=== PATIENT | female | born 1985 ===

== ENCOUNTER 2017-11-04 01:43 | Inpatient (IN) | payer MEDICAID ==
[2017-11-04] MEDS ORDERED: Sodium Chloride 0.9% 1,000 ML IV ONE ×5 (02:27→10:32)
--- NOTE | 2017-11-04 02:27 | C.PDOC ---
History Of Present Illness The patient is brought to the ED by ambulance for evaluation of mid-epigastric abdominal pain and episode of coffee ground emesis which occurred prior to arrival. Patient admits to using cocaine yesterday. She denies fever, chills, or recent alcohol intake. Time Seen by Provider: 11/04/17 02:27 Chief Complaint (Nursing): Abdominal Pain History Per: Patient, EMS History/Exam Limitations: no limitations Onset/Duration Of Symptoms: Hrs Current Symptoms Are (Timing): Still Present Severity: Severe Pain Scale Rating Of: 7 Location Of Pain/Discomfort: Epigastric (mid) Radiation Of Pain To:: None Quality Of Discomfort: "Pain" Associated Symptoms: Vomiting. denies: Fever, Chills Exacerbating Factors: None Alleviating Factors: None Recent travel outside of the [place]: No Additional History Per: Patient, EMS Abnormal Vaginal Bleeding: No Past Medical History Reviewed: Historical Data, Nursing Documentation, Vital Signs Vital Signs: Last Vital Signs Temp 99.1 F 11/04/17 05:04 Pulse 109 H 11/04/17 05:40 Resp 16 11/04/17 05:40 BP 121/85 11/04/17 05:40 Pulse Ox 98 11/04/17 06:47 - Medical History PMH: Anxiety Surgical History: No Surg Hx Family History: States: Unknown Family Hx - Social History Hx Alcohol Use: No Hx Substance Use: Yes Review Of Systems Constitutional: Negative for: Fever, Chills ENT: Negative for: Throat Pain Cardiovascular: Negative for: Chest Pain, Palpitations Respiratory: Negative for: Cough, Shortness of Breath Gastrointestinal: Positive for: Vomiting (coffee-ground ), Abdominal Pain (mid- epigastric ) Genitourinary: Negative for: Dysuria, Hematuria Musculoskeletal: Negative for: Back Pain Skin: Negative for: Rash, Lesions, Jaundice, Bruising Neurological: Negative for: Weakness, Numbness Psych: Positive for: Anxiety Physical Exam - Physical Exam Appears: Non-toxic, No Acute Distress Skin: Warm, Dry Head: Normacephalic Eye(s): bilateral: Normal Inspection Oral Mucosa: Dry Teeth: No Normal Dentition (poor ) Neck: Trachea Midline, Supple Chest: Symmetrical, No Deformity, No Tenderness Cardiovascular: Rhythm Regular Respiratory: No Rales, No Rhonchi, No Wheezing Gastrointestinal/Abdominal: Soft, Tenderness (mid-epigastric ), No Guarding, No Rebound Rectal: Heme Negative, Maroon Stool Back: Normal Inspection Extremity: Normal ROM, Capillary Refill (less than 2 seconds ) Extremity: Bilateral: Atraumatic, No Pedal Edema, Normal Color And Temperature Neurological/Psych: Oriented x3 Gait: Steady ED Course And Treatment - Laboratory Results Result Diagrams: 11/04/17 02:29 11/04/17 02:29 O2 Sat by Pulse Oximetry: 98 (on RA) Pulse Ox Interpretation: Normal - Radiology CXR: Interpreted by Me, Viewed By Me CXR Interpretation: No: Infiltrates, Fracture, Pnemothorax - CT Scan/US CT A/P Other Rad Studies (CT/US): Read By Radiologist, Radiology Report Reviewed CT/US Interpretation: EXAM: CT Abdomen and Pelvis With Intravenous Contrast. EXAM DATE/TIME: 11/04/2017 4:24 AM. CLINICAL HISTORY: 31 years old, female; Pain; Abdominal pain; Generalized; Additional info: Hematemesis. TECHNIQUE: Axial computed tomography images of the abdomen and pelvis with intravenous contrast. All CT scans at this facility use at least one of these dose optimization techniques: automated. exposure control; mA and/or kV adjustment per patient size (includes targeted exams where dose is. matched to clinical indication); or iterative reconstruction. CONTRAST: 100 ml of Visipaque 320 administered intravenously. COMPARISON: No relevant prior studies available. FINDINGS: Limitations: Quantum mottle artifact in the upper abdomen from the patient's arms by her sides. partially obscures evaluation. Lower thorax: Minimal subsegmental atelectasis at the right lung base. Small hiatal hernia. ABDOMEN: Liver: Normal. No mass. Gallbladder and bile ducts: Normal. No calcified stones. No ductal dilation. Pancreas: Normal. No ductal dilation. Spleen: Normal. No splenomegaly. Adrenals: Normal. No mass. Kidneys and ureters: Normal. No hydronephrosis. Stomach and bowel: Diffuse gastric wall thickening worrisome for gastritis. Appendix: No evidence of appendicitis. PELVIS: Bladder: Distended urinary bladder. Reproductive: Unremarkable as visualized. ABDOMEN and PELVIS: Intraperitoneal space: Minimal free fluid within the pelvis. Bones/joints: No acute fracture. No dislocation. Soft tissues: Unremarkable. Vasculature: Normal. No abdominal aortic aneurysm. Lymph nodes: Normal. No enlarged lymph nodes. IMPRESSION: 1. Diffuse gastric wall thickening worrisome for gastritis. 2. Minimal free fluid within the pelvis. Progress Note: Bloodwork and urinalysis ordered and reviewed. Protonix IVP, Zofran IVP and IV Fluids given. I've placed an 18G left EJ without any difficulty. Pt tolerated the procedure well Critical Care Time - Critical Care Note Total Time (in mins): 30 Documented critical care: time excludes all time spent performing seperately billable procedures. Disposition Counseled Patient/Family Regarding: Studies Performed, Diagnosis - Disposition Disposition Time: 02:27 Condition: GUARDED Forms: Vibrynt (Maori) - Clinical Impression Clinical Impression: Abdominal pain, Upper GI bleed - PA / RUNNER OUT / Resident Statement MD/DO has reviewed & agrees with the documentation as recorded. - Scribe Statement The provider has reviewed the documentation as recorded by the Scribe (Phyllis Jones) Provider Attestation: All medical record entries made by the Scribe were at my direction and personally dictated by me. I have reviewed the chart and agree that the record accurately reflects my personal performance of the history, physical exam, medical decision making, and the department course for this patient. I have also personally directed, reviewed, and agree with the discharge instructions and disposition. Physician Patient Turnover Patient Signed Over To: Petrona Ward Handoff Comments: pending ct, repeat labs and disposition
[2017-11-04] MEDS ORDERED: Sodium Chloride 0.9% 1,000 ML ONE (02:35)
[2017-11-04 02:38] LABS: BASO # 0.1 K/uL (0.0-0.2); BASO % 0.5 % (0.0-2.0); EOS % 0.1 % (0.0-4.0); HEMOGLOBIN 14.8 g/dL (11.0-16.0); LYMPH # 2.2 K/uL (1.0-4.3); LYMPH % 14.3 % (20.0-40.0); MEAN CELL VOLUME 89.1 fL (81.0-99.0); MEAN CORPUSCULAR HEMOGLOBIN 29.4 pg (27.0-31.0); MEAN PLATELET VOLUME 10.1 fL (7.2-11.7); MONO # 0.8 K/uL (0.0-0.8); MONO % 4.9 % (0.0-10.0); NEUT # 12.4 K/uL (1.8-7.0); NEUT % 80.2 % (50.0-75.0); NRBC % 0.1 % (0.0-2.0); RBC 5.02 Mil/uL (3.80-5.20); RED CELL DISTRIBUTION WIDTH 14.5 % (11.5-14.5); WHITE BLOOD COUNT 15.5 K/uL (4.8-10.8)
[2017-11-04 02:49] LABS: INR 0.8
[2017-11-04 02:49] LABS: ALB/GLOB RATIO 1.2 (1.0-2.1); ALBUMIN 5.3 g/dL (3.5-5.0); ALT/SGPT 103 U/L (9-52); AST/SGOT 76 U/L (14-36); BLOOD UREA NITROGEN 21 mg/dL (7-17); CALCIUM 10.1 mg/dl (8.6-10.4); GFR AFRICAN-AMERICAN > 60; GFR NON-AFRICAN AMERICAN > 60; LIPASE 38 U/L (23-300)
[2017-11-04 03:18] LABS: SQUAMOUS EPITHIAL < 1 /hpf (0-5); URINE BACTERIA RARE (<OCC); URINE BILIRUBIN NEGATIVE (NEGATIVE); URINE BLOOD 1+ (NEGATIVE); URINE CLARITY Clear (Clear); URINE COLOR Straw (YELLOW); URINE GLUCOSE (UA) 3+ mg/dL (Normal); URINE LEUKOCYTE ESTERASE NEG Leu/uL (Negative); URINE PROTEIN NEGATIVE (NEGATIVE); URINE UROBILINOGEN NORMAL mg/dL (0.2-1.0)
[2017-11-04 03:19] LABS: HCG,QUALITATIVE URINE NEGATIVE (NEGATIVE)
[2017-11-04 03:21] LABS: VENOUS BLOOD GAS PCO2 43 mmHg (40-60); VENOUS BLOOD GAS PO2 37 mm/Hg (30-55); VENOUS BLOOD PH 7.35 (7.32-7.43)
[2017-11-04 03:50] LABS: BARBITURATES, UR NEGATIVE (NEGATIVE); BENZODIAZEPINES, UR NEGATIVE (NEGATIVE); OPIATES, UR NEGATIVE (NEGATIVE); PHENCYCLIDINE, UR NEGATIVE (NEGATIVE)
[2017-11-04] MEDS ORDERED: Piperacillin/Tazobact 3.375 gm 100 ML IVPB STA (04:24)
[2017-11-04] MEDS ORDERED: Piperacillin/Tazobact 3.375 gm 100 ML IVPB ONE (04:31)
[2017-11-04] MEDS ORDERED: Iodixanol 320 MG/ML 100 ML BOTTLE IV ONE (04:40)
[2017-11-04 08:32] LABS: VENOUS BLOOD GAS PCO2 46 mmHg (40-60); VENOUS BLOOD GAS PO2 52 mm/Hg (30-55)
[2017-11-04] MEDS ORDERED: Glucagon Recombinant 1 mg Inj IM PRN (08:42)
[2017-11-04] MEDS ORDERED: Dextrose 50% SYRINGE Inj (50 ml) IV PRN (08:42)
[2017-11-04 08:48] LABS: BASO % 0.3 % (0.0-2.0); EOS % 0.3 % (0.0-4.0); LYMPH # 3.1 K/uL (1.0-4.3); LYMPH % 24.6 % (20.0-40.0); MEAN CORPUSCULAR HEMOGLOBIN 29.3 pg (27.0-31.0); MEAN CORPUSCULAR HGB CONC 34.2 g/dL (33.0-37.0); MEAN PLATELET VOLUME 8.7 fL (7.2-11.7); MONO % 7.8 % (0.0-10.0); NEUT # 8.5 K/uL (1.8-7.0); RBC 3.63 Mil/uL (3.80-5.20); RED CELL DISTRIBUTION WIDTH 13.6 % (11.5-14.5); WHITE BLOOD COUNT 12.7 K/uL (4.8-10.8)
[2017-11-04] MEDS ORDERED: Dextrose 50% SYRINGE Inj (50 ml) IVP STA ×2 (08:50)
[2017-11-04 08:52] LABS: HEMOGLOBIN 10.6 g/dL (11.0-16.0); MEAN CELL VOLUME 85.7 fL (81.0-99.0)
[2017-11-04] MEDS ORDERED: Dextrose 25% Inj (10ml) ONE (08:57)
[2017-11-04] MEDS ORDERED: Pantoprazole 80 MG in Sodium Chloride 0.9% 100 ML IVPB SCH (09:45)
[2017-11-04] MEDS ORDERED: Pantoprazole 80 MG in Sodium Chloride 0.9% 100 ML IVP SCH (09:45)
--- NOTE | 2017-11-04 09:49 | RAD ---
Date of service: 11/04/2017 PROCEDURE: CHEST RADIOGRAPH, 1 VIEW HISTORY: vomiting COMPARISON: Frontal chest radiograph 11/04/2017. FINDINGS: LUNGS: No interval airspace disease appreciated. PLEURA: No pneumothorax or pleural fluid seen. CARDIOVASCULAR: Stable cardiomediastinal silhouette and pulmonary vascular pattern. No definite pulmonary vascular congestion. OSSEOUS STRUCTURES: No significant abnormalities. VISUALIZED UPPER ABDOMEN: Mild right hemidiaphragm elevation stable, etiology unclear. OTHER FINDINGS: None. IMPRESSION: Stable nonacute chest radiograph. Elevation right hemidiaphragm unchanged.
[2017-11-04] MEDS ORDERED: Sodium Chloride 0.9% 1,000 ML IV SCH ×2 (10:00→10:15)
[2017-11-04] MEDS ORDERED: Piperacillin/Tazobact 3.375 gm 100 ML IVPB SCH (10:30)
[2017-11-04] MEDS ORDERED: Sodium Chloride 0.9% 500 ML IV ONE (10:35)
[2017-11-04] MEDS ORDERED: Dextrose 50% SYRINGE Inj (50 ml) IV STA (11:07)
[2017-11-04] MEDS ORDERED: Dextrose 50% SYRINGE Inj (50 ml) ONE (11:15)
--- NOTE | 2017-11-04 11:19 | CP.PCM.HP ---
<Yael Yeh V - Last Filed: 11/04/17 22:58> Meds Allergies/Adverse Reactions: Allergies Allergy/AdvReac Type Severity Reaction Status Date / Time No Known Allergies Allergy Verified 11/04/17 01:57 Results - Vital Signs Recent Vital Signs: Last Vital Signs Temp 98.4 F 11/04/17 19:00 Pulse 98 H 11/04/17 19:00 Resp 20 11/04/17 19:00 BP 121/76 11/04/17 19:00 Pulse Ox 96 11/04/17 19:00 - Labs Result Diagrams: 11/04/17 14:06 11/04/17 12:18 Labs: Laboratory Results - last 24 hr 11/04/17 11/04/17 11/04/17 02:29 02:29 02:42 WBC 15.5 H RBC 5.02 Hgb 14.8 Hct 44.8 MCV 89.1 MCH 29.4 MCHC 33.0 RDW 14.5 Plt Count 338 MPV 10.1 Neut % (Auto) 80.2 H Lymph % (Auto) 14.3 L Callahan % (Auto) 4.9 Eos % (Auto) 0.1 Baso % (Auto) 0.5 Neut # (Auto) 12.4 H Lymph # (Auto) 2.2 Callahan # (Auto) 0.8 Eos # (Auto) 0.0 Baso # (Auto) 0.1 Differential Comment Retic Count PT 9.0 L INR 0.8 APTT 28 pO2 VBG pH VBG pCO2 VBG HCO3 VBG Total CO2 VBG O2 Sat (Calc) VBG Base Excess VBG Potassium Glucose Lactate Crit Value Called To Crit Value Called By Crit Value Read Back Blood Gas Notified Time Sodium 139 Potassium 4.5 Chloride 90 L Carbon Dioxide 16 L Anion Gap 38 H BUN 21 H Creatinine 0.8 Est GFR ( Amer) > 60 Est GFR (Non-Af Amer) > 60 Random Glucose 461 H* Lactic Acid Calcium 10.1 Iron TIBC % Saturation Ferritin Total Bilirubin 0.5 AST 76 H ALT 103 H Alkaline Phosphatase 156 H Ammonia Total Protein 9.5 H Albumin 5.3 H Globulin 4.3 H Albumin/Globulin Ratio 1.2 Lipase 38 Vitamin B12 Folate Venous Blood Potassium Urine Color Urine Clarity Urine pH Ur Specific [place] Urine Protein Urine Glucose (UA) Urine Ketones Urine Blood Urine Nitrate Urine Bilirubin Urine Urobilinogen Ur Leukocyte Esterase Urine WBC (Auto) Urine RBC (Auto) Ur Squamous Epith Cells Urine Bacteria Urine HCG, Qual Stool Occult Blood Urine Opiates Screen Urine Methadone Screen Ur Barbiturates Screen Ur Phencyclidine Scrn Ur Amphetamines Screen U Benzodiazepines Scrn U Oth Cocaine Metabols U Cannabinoids Screen Alcohol, Quantitative < 10 Blood Type Antibody Screen 11/04/17 11/04/17 11/04/17 02:56 03:08 03:08 WBC RBC Hgb Hct MCV MCH MCHC RDW Plt Count MPV Neut % (Auto) Lymph % (Auto) Callahan % (Auto) Eos % (Auto) Baso % (Auto) Neut # (Auto) Lymph # (Auto) Callahan # (Auto) Eos # (Auto) Baso # (Auto) Differential Comment Retic Count PT INR APTT pO2 VBG pH VBG pCO2 VBG HCO3 VBG Total CO2 VBG O2 Sat (Calc) VBG Base Excess VBG Potassium Glucose Lactate Crit Value Called To Crit Value Called By Crit Value Read Back Blood Gas Notified Time Sodium Potassium Chloride Carbon Dioxide Anion Gap BUN Creatinine Est GFR ( Amer) Est GFR (Non-Af Amer) Random Glucose Lactic Acid Calcium Iron TIBC % Saturation Ferritin Total Bilirubin AST ALT Alkaline Phosphatase Ammonia Total Protein Albumin Globulin Albumin/Globulin Ratio Lipase Vitamin B12 Folate Venous Blood Potassium Urine Color Straw Urine Clarity Clear Urine pH 5.0 Ur Specific [place] 1.023 Urine Protein Negative Urine Glucose (UA) 3+ H Urine Ketones 2+ H Urine Blood 1+ H Urine Nitrate Negative Urine Bilirubin Negative Urine Urobilinogen Normal Ur Leukocyte Esterase Neg Urine WBC (Auto) 4 Urine RBC (Auto) 10 H Ur Squamous Epith Cells < 1 Urine Bacteria Rare Urine HCG, Qual Negative Stool Occult Blood Urine Opiates Screen Negative Urine Methadone Screen Negative Ur Barbiturates Screen Negative Ur Phencyclidine Scrn Negative Ur Amphetamines Screen Negative U Benzodiazepines Scrn Negative U Oth Cocaine Metabols Positive H U Cannabinoids Screen Positive H Alcohol, Quantitative Blood Type A POSITIVE Antibody Screen Negative 11/04/17 11/04/17 11/04/17 03:12 04:22 06:19 WBC RBC Hgb Hct MCV MCH MCHC RDW Plt Count MPV Neut % (Auto) Lymph % (Auto) Callahan % (Auto) Eos % (Auto) Baso % (Auto) Neut # (Auto) Lymph # (Auto) Callahan # (Auto) Eos # (Auto) Baso # (Auto) Differential Comment Retic Count PT INR APTT pO2 37 VBG pH 7.35 VBG pCO2 43 VBG HCO3 22.5 VBG Total CO2 25.0 VBG O2 Sat (Calc) 70.5 H VBG Base Excess -2.0 L VBG Potassium 4.2 Glucose 421 H* Lactate 11.5 H* Crit Value Called To Jaydon burden rn Crit Value Called By Lay grants administrator Crit Value Read Back Y Blood Gas Notified Time 321 Sodium 141.0 Potassium Chloride 92.0 L Carbon Dioxide Anion Gap BUN Creatinine Est GFR ( Amer) Est GFR (Non-Af Amer) Random Glucose Lactic Acid 1.4 Calcium Iron TIBC % Saturation Ferritin Total Bilirubin AST ALT Alkaline Phosphatase Ammonia Total Protein Albumin Globulin Albumin/Globulin Ratio Lipase Vitamin B12 Folate Venous Blood Potassium 4.2 Urine Color Urine Clarity Urine pH Ur Specific [place] Urine Protein Urine Glucose (UA) Urine Ketones Urine Blood Urine Nitrate Urine Bilirubin Urine Urobilinogen Ur Leukocyte Esterase Urine WBC (Auto) Urine RBC (Auto) Ur Squamous Epith Cells Urine Bacteria Urine HCG, Qual Stool Occult Blood Negative Urine Opiates Screen Urine Methadone Screen Ur Barbiturates Screen Ur Phencyclidine Scrn Ur Amphetamines Screen U Benzodiazepines Scrn U Oth Cocaine Metabols U Cannabinoids Screen Alcohol, Quantitative Blood Type Antibody Screen 11/04/17 11/04/17 11/04/17 08:24 08:42 10:54 WBC 12.7 H Cancelled RBC 3.63 L Cancelled Hgb 10.6 L D Cancelled Hct 31.1 L Cancelled MCV 85.7 D Cancelled MCH 29.3 Cancelled MCHC 34.2 Cancelled RDW 13.6 Cancelled Plt Count 301 Cancelled MPV 8.7 Cancelled Neut % (Auto) 67.0 Cancelled Lymph % (Auto) 24.6 Cancelled Callahan % (Auto) 7.8 Cancelled Eos % (Auto) 0.3 Cancelled Baso % (Auto) 0.3 Cancelled Neut # (Auto) 8.5 H Cancelled Lymph # (Auto) 3.1 Cancelled Callahan # (Auto) 1.0 H Cancelled Eos # (Auto) 0.0 Cancelled Baso # (Auto) 0.0 Cancelled Differential Comment Retic Count 1.1 PT INR APTT pO2 52 VBG pH 7.40 VBG pCO2 46 VBG HCO3 27.0 VBG Total CO2 29.9 H VBG O2 Sat (Calc) 89.5 H VBG Base Excess 3.0 H VBG Potassium 2.6 L Glucose 32 L* D Lactate 1.5 Crit Value Called To Navjot villalpando Crit Value Called By Sean espinosa Crit Value Read Back Y Blood Gas Notified Time 831 Sodium 144.0 Potassium Chloride 110.0 H Carbon Dioxide Anion Gap BUN Creatinine Est GFR ( Amer) Est GFR (Non-Af Amer) Random Glucose Lactic Acid Calcium Iron TIBC % Saturation Ferritin Total Bilirubin AST ALT Alkaline Phosphatase Ammonia Total Protein Albumin Globulin Albumin/Globulin Ratio Lipase Vitamin B12 Folate Venous Blood Potassium 2.6 L Urine Color Urine Clarity Urine pH Ur Specific [place] Urine Protein Urine Glucose (UA) Urine Ketones Urine Blood Urine Nitrate Urine Bilirubin Urine Urobilinogen Ur Leukocyte Esterase Urine WBC (Auto) Urine RBC (Auto) Ur Squamous Epith Cells Urine Bacteria Urine HCG, Qual Stool Occult Blood Urine Opiates Screen Urine Methadone Screen Ur Barbiturates Screen Ur Phencyclidine Scrn Ur Amphetamines Screen U Benzodiazepines Scrn U Oth Cocaine Metabols U Cannabinoids Screen Alcohol, Quantitative Blood Type Antibody Screen 11/04/17 11/04/17 11/04/17 12:18 12:18 14:06 WBC RBC Hgb Hct MCV MCH MCHC RDW Plt Count MPV Neut % (Auto) Lymph % (Auto) Callahan % (Auto) Eos % (Auto) Baso % (Auto) Neut # (Auto) Lymph # (Auto) Callahan # (Auto) Eos # (Auto) Baso # (Auto) Differential Comment Retic Count PT INR APTT pO2 VBG pH VBG pCO2 VBG HCO3 VBG Total CO2 VBG O2 Sat (Calc) VBG Base Excess VBG Potassium Glucose Lactate Crit Value Called To Crit Value Called By Crit Value Read Back Blood Gas Notified Time Sodium 144 Potassium 3.6 Chloride 106 Carbon Dioxide 25 Anion Gap 16 BUN 13 Creatinine 0.5 L Est GFR ( Amer) > 60 Est GFR (Non-Af Amer) > 60 Random Glucose 52 L Lactic Acid Calcium 8.0 L Iron 40 TIBC 330 % Saturation 12 L Ferritin 69.2 Total Bilirubin 0.4 AST 42 H D ALT 71 H D Alkaline Phosphatase 89 Ammonia 10 Total Protein 6.8 Albumin 3.7 Globulin 3.1 Albumin/Globulin Ratio 1.2 Lipase Vitamin B12 342 Folate 15.6 Venous Blood Potassium Urine Color Urine Clarity Urine pH Ur Specific [place] Urine Protein Urine Glucose (UA) Urine Ketones Urine Blood Urine Nitrate Urine Bilirubin Urine Urobilinogen Ur Leukocyte Esterase Urine WBC (Auto) Urine RBC (Auto) Ur Squamous Epith Cells Urine Bacteria Urine HCG, Qual Stool Occult Blood Urine Opiates Screen Urine Methadone Screen Ur Barbiturates Screen Ur Phencyclidine Scrn Ur Amphetamines Screen U Benzodiazepines Scrn U Oth Cocaine Metabols U Cannabinoids Screen Alcohol, Quantitative Blood Type Antibody Screen 11/04/17 14:06 WBC 13.2 H RBC 3.71 L Hgb 10.5 L Hct 32.1 L MCV 86.4 MCH 28.2 MCHC 32.7 L RDW 14.0 Plt Count 265 MPV 8.3 Neut % (Auto) Lymph % (Auto) Callahan % (Auto) Eos % (Auto) Baso % (Auto) Neut # (Auto) Lymph # (Auto) Callahan # (Auto) Eos # (Auto) Baso # (Auto) Differential Comment Retic Count PT INR APTT pO2 VBG pH VBG pCO2 VBG HCO3 VBG Total CO2 VBG O2 Sat (Calc) VBG Base Excess VBG Potassium Glucose Lactate Crit Value Called To Crit Value Called By Crit Value Read Back Blood Gas Notified Time Sodium Potassium Chloride Carbon Dioxide Anion Gap BUN Creatinine Est GFR ( Amer) Est GFR (Non-Af Amer) Random Glucose Lactic Acid Calcium Iron TIBC % Saturation Ferritin Total Bilirubin AST ALT Alkaline Phosphatase Ammonia Total Protein Albumin Globulin Albumin/Globulin Ratio Lipase Vitamin B12 Folate Venous Blood Potassium Urine Color Urine Clarity Urine pH Ur Specific [place] Urine Protein Urine Glucose (UA) Urine Ketones Urine Blood Urine Nitrate Urine Bilirubin Urine Urobilinogen Ur Leukocyte Esterase Urine WBC (Auto) Urine RBC (Auto) Ur Squamous Epith Cells Urine Bacteria Urine HCG, Qual Stool Occult Blood Urine Opiates Screen Urine Methadone Screen Ur Barbiturates Screen Ur Phencyclidine Scrn Ur Amphetamines Screen U Benzodiazepines Scrn U Oth Cocaine Metabols U Cannabinoids Screen Alcohol, Quantitative Blood Type Antibody Screen Attending/Attestation - Attestation I have personally seen and examined this patient.: Yes I have fully participated in the care of the patient.: Yes I have reviewed all pertinent clinical information: Yes Notes (Text): 31 year old Female PMHX Diabetes, Cocaine Use, Blood clot (on Eliquis) comes into the Emergency following 2 day history of epigastric abdominal pain, with associated with multiple vomitting episodes. Patient has initially reported that her throw-up for coffee ground emesis. Patient denies NSAIDs, denies alcohol. Patient is drowsy at bedside. History limited secondary to clinical condition. Patient reports last use of cocaine was when she snorted it about 2 days ago. Patient reports last insulin use was her premeal which was 2 days ago. I spoke with ED nurse, Navjot, there has been no coffee ground emesis reported on his shift. Patient refuses to lie down on her back because of pain. Patient receive 4 Liters of IV boluses overnight, Protonix 40mg IV and Zofran 4mg IV. We have repeat CBC noted 14-->10. Hemodilutional versus bleeding. Patient's [facility] reading for CT abdomen/pelvis noting for gastritis. Patient started on Protonix drip, given additional NS 500cc bolus X1 by myself. Patient noted for hypoglycemia at sugar of 70. Order for amp D50 X1. Patient's IV fluids changed to D5/12NS 20 KCL meq 100cc/hr to prevent hypoglycemia and GI losses from the vomitting. I discussed with the case with GI, Dr Augustine given consideration for endoscopy. He has evaluated the patient this morning. I did discuss with him the third CBC this afternoon which remains 10s; belief that patient is not acutely bleeding at this time; can start Protonix 40mg IV Q12H and give patient ice chips. I have seen patient many times today from admission in the Emergency Room, on the medical floor about 3 additional times. Patient has threatened to leave against medical advice from her time in the Emergency Room and at least two more times on the floor. Patient placed on 1:1 for behavior disturbance when she pulled out her peripheral line and becoming verbally abusive to the nursing staff and group managing director indicating "she does not want anyone to touch her." When I came to evaluate her, she allowed for the CBC with the understanding that possible egd may been necessary to check if she is acute bleeding. Patient has CT head given her initial drowsiness in the ED and noted no acute findings in the head CT. I have spoken with the patient at about 3PM. She does not want her medical information shared with her boyfriend nor family. She at this last evaluation is very awake, alert, sitting upright, begging for ice chips. Given discussion with GI, I personally brought her ice chips to silvia and assist nursing staff. She is also requesting regular diet yet she reports she is in "intense" abdominal pain. I have indicated to her that we should start slow and easy on the stomach since her main concern was her abdominal pain and thought she was throwing up blood. Patient informs me she was recently hospitalized at [facility] but cannot tell me for what. She reports she has a blood clot in her neck and has been on Eliquis for about a month but has run out because she could not afford it. Patient refused EKG in the ED. Patient is currently on telemetry on the medical floor. Time: >30 minutes 1) Abdominal Pain Gastritis Possible GI Bleed Assessment/Plan * Admit to telemetry * CT abdomen IV contrast 11/04/17-diffuse gastric wall thickening, worrisome for gastritis. * GI, Dr. Augustine, consulted. Help appreciated. * Case discussed and updated through out the day. * Patient ordered for type and cross; with 2 units of PRBC available if she needs. * Patient recommended for with 2 large bore IVs: R AC (24 gauge; nursing staff has attempted but she is dehydrated), L EJ placed by the Emergency Room Physician * Started on Protonix drip-->Switched Protonix 40mg IV Q12 * D/c NS @ 125cc/hr-->switched to D5/12 NS with 20meq KCL 100cc/hr * Risk factor: +cocaine, denies NSAID, denies alcohol, +eliquis * Monitor H/H * 14-->10 (hemodilutional)-->10 stable * NPO switched to NPO with Ice chips * Lipase: normal 2) Transaminitis Assessment/Plan * Possible acute phase reactant * Order for hepatitis panel * Order for abdominal US complete: f/u 3) Diabetes Mellitus Assessment/Plan * Order for A1c, Lipid panel * Hypoglycemic protocol * Accucheck Q6H * Hold insulin sliding scale given periods of hypoglycemia * Start D51/2 NS KCL 20meq 4) Cocaine use Assessment/Plan * Recommend beta blockers * Reports last use about 2 days * Discussed with psych, there is no withdrawal protocol for cocaine use; recommended for Gabapentin if necessary * Patient refused EKG on admission 5) Nausea/Vomiting Assessment/Plan * Zofran 4mg IV Q6H PRN nausea * Patient refused EKG on admission 6) Dysuria/Frquency Assessment/Plan * Urine culture (Straight cath) * UA: 3+ glucose, 2+ ketones, 1+ blood, 10 RBC * Start Zosyn 3.375 gm IV Q8H (active since 11/04/17) * Consider probiotic when patient is transition to liquid diet 7) Anemia Assessment/Plan * bleed vs hemodilutional * Received 4 Liters overnight * Reticulocyte count, Ferritin * Iron studies: * Serum Fe * Iron saturation * TIBC * Folate * B12 * gastric occult blood * No gross hematochezia on exam * negative stool occult blood 8) History of Blood clot in the neck Assessment/Plan * Initially it was unclear why patient was using Eliquis given how drowsy and agitated she was in the ED. When patient more hydrated and calm in the afternoon she was able to indicate she was on ELiquis for about one month for "blood clot in the neck" * Cartoid duplex r/o clot in neck * order for venous duplex r/o DVT in upper and lower extremities * Order for EKG-->patient refused 9) Lactic acidosis Assessment/Plan * Resolved * Had receieved 4 Liters of fluid overnight 10) Leukocytosis Assessment/Plan * reactive secondary to nausea/vomitting vs symptomatic UTI vs GI bleed? * Blood cultures X2 * urine culture * c/w Zosyn 3.375 IV [id number] 11)Prophylactic measures * chemical VTE prophylaxis contraindicated secondary to suspected GI bleed * Contraindications to SCD until DVT is ruled out * initially Protonix drip switched to protonix 40mg IV Q12H * NPO with ice chips * PT/OT eval * 1:1 behavior disturbance <Remedios Rodríguez P - Last Filed: 11/05/17 00:32> History of Present Illness - History of Present Illness History of Present Illness: H&P note for Hospitalist Service HPI: 31 year old female with PMHx of DM, DKA, anemia, blood clot and cocaine use disorder presents to the ED for severe epigastric abdominal pain and vomiting for the past 2 days. Patient states there was blood in her vomitus and "lost count" of the number of episodes. Patient also admits to body aches, dysuria and urinary frequency. Denies diarrhea. Patient states she last used cocaine 2 days ago, snorted. Last took home meds of Levamir and iron 2 days ago. Unable to obtain further history as patient is difficult to arouse. PMHx: DM, DKA, anemia, blood clot, cocaine use disorder PSHx: Unable to obtain Allergies: NKDA Medications: levamir 30u sc HS, novolog 3u SC TID, Iron, Eliquis 2 tab PO BID ( states she takes for a "blood clot in her neck") Family Hx: unable to obtain. PMD: none Present on Admission - Present on Admission Any Indicators Present on Admission: Yes Review of Systems - Review of Systems Systems not reviewed;Unavailable: Uncooperative - EENT Nose/Mouth/Throat: Sore Throat (throat pain from vomiting) - Gastrointestinal Gastrointestinal: Abdominal Pain, Coffee Ground Emesis, Nausea, Vomiting - Genitourinary Genitourinary: Dysuria, Urinary Frequency Past Patient History - Past Social History Smoking Status: Heavy Smoker > 10 Cigarettes Daily - ENDOCRINE/METABOLIC Hx Diabetes Mellitus Type 1: Yes Other/Comment: DKA - PSYCHIATRIC Hx Anxiety: Yes Hx Substance Use: Yes Physical Exam - Constitutional Additional comments: Pt in uncomfortable with abdominal pain and retching. - Head Exam Head Exam: ATRAUMATIC, NORMOCEPHALIC - Eye Exam Eye Exam: EOMI, PERRL (dilated but reactive) - ENT Exam ENT Exam: Mucous Membranes Moist - Neck Exam Additional comments: Left IJ iv in place. - Respiratory Exam Respiratory Exam: Clear to Auscultation Bilateral, NORMAL BREATHING PATTERN. absent: Rales, Rhonchi, Wheezes - Cardiovascular Exam Cardiovascular Exam: REGULAR RHYTHM, +S1, +S2 - GI/Abdominal Exam GI & Abdominal Exam: Distended, Guarding, Normal Bowel Sounds, Tenderness ( diffusely). absent: Rebound - Extremities Exam Extremities exam: Negative for: pedal edema, tenderness - Neurological Exam Additional comments: Somnolent. Uncooperative. - Skin Skin Exam: Intact, Normal Color Results - Vital Signs Recent Vital Signs: Last Vital Signs Temp 99.1 F 11/04/17 05:04 Pulse 107 H 11/04/17 10:30 Resp 14 11/04/17 10:30 BP 94/58 L 11/04/17 10:30 Pulse Ox 98 11/04/17 10:30 - Labs Result Diagrams: 11/04/17 14:06 11/04/17 12:18 Labs: Laboratory Results - last 24 hr 11/04/17 11/04/17 11/04/17 02:29 02:29 02:42 WBC 15.5 H RBC 5.02 Hgb 14.8 Hct 44.8 MCV 89.1 MCH 29.4 MCHC 33.0 RDW 14.5 Plt Count 338 MPV 10.1 Neut % (Auto) 80.2 H Lymph % (Auto) 14.3 L Callahan % (Auto) 4.9 Eos % (Auto) 0.1 Baso % (Auto) 0.5 Neut # (Auto) 12.4 H Lymph # (Auto) 2.2 Callahan # (Auto) 0.8 Eos # (Auto) 0.0 Baso # (Auto) 0.1 Differential Comment PT 9.0 L INR 0.8 APTT 28 pO2 VBG pH VBG pCO2 VBG HCO3 VBG Total CO2 VBG O2 Sat (Calc) VBG Base Excess VBG Potassium Glucose Lactate Crit Value Called To Crit Value Called By Crit Value Read Back Blood Gas Notified Time Sodium 139 Potassium 4.5 Chloride 90 L Carbon Dioxide 16 L Anion Gap 38 H BUN 21 H Creatinine 0.8 Est GFR ( Amer) > 60 Est GFR (Non-Af Amer) > 60 Random Glucose 461 H* Lactic Acid Calcium 10.1 Total Bilirubin 0.5 AST 76 H ALT 103 H Alkaline Phosphatase 156 H Total Protein 9.5 H Albumin 5.3 H Globulin 4.3 H Albumin/Globulin Ratio 1.2 Lipase 38 Venous Blood Potassium Urine Color Urine Clarity Urine pH Ur Specific [place] Urine Protein Urine Glucose (UA) Urine Ketones Urine Blood Urine Nitrate Urine Bilirubin Urine Urobilinogen Ur Leukocyte Esterase Urine WBC (Auto) Urine RBC (Auto) Ur Squamous Epith Cells Urine Bacteria Urine HCG, Qual Stool Occult Blood Urine Opiates Screen Urine Methadone Screen Ur Barbiturates Screen Ur Phencyclidine Scrn Ur Amphetamines Screen U Benzodiazepines Scrn U Oth Cocaine Metabols U Cannabinoids Screen Alcohol, Quantitative < 10 Blood Type Antibody Screen 11/04/17 11/04/17 11/04/17 02:56 03:08 03:08 WBC RBC Hgb Hct MCV MCH MCHC RDW Plt Count MPV Neut % (Auto) Lymph % (Auto) Callahan % (Auto) Eos % (Auto) Baso % (Auto) Neut # (Auto) Lymph # (Auto) Callahan # (Auto) Eos # (Auto) Baso # (Auto) Differential Comment PT INR APTT pO2 VBG pH VBG pCO2 VBG HCO3 VBG Total CO2 VBG O2 Sat (Calc) VBG Base Excess VBG Potassium Glucose Lactate Crit Value Called To Crit Value Called By Crit Value Read Back Blood Gas Notified Time Sodium Potassium Chloride Carbon Dioxide Anion Gap BUN Creatinine Est GFR ( Amer) Est GFR (Non-Af Amer) Random Glucose Lactic Acid Calcium Total Bilirubin AST ALT Alkaline Phosphatase Total Protein Albumin Globulin Albumin/Globulin Ratio Lipase Venous Blood Potassium Urine Color Straw Urine Clarity Clear Urine pH 5.0 Ur Specific [place] 1.023 Urine Protein Negative Urine Glucose (UA) 3+ H Urine Ketones 2+ H Urine Blood 1+ H Urine Nitrate Negative Urine Bilirubin Negative Urine Urobilinogen Normal Ur Leukocyte Esterase Neg Urine WBC (Auto) 4 Urine RBC (Auto) 10 H Ur Squamous Epith Cells < 1 Urine Bacteria Rare Urine HCG, Qual Negative Stool Occult Blood Urine Opiates Screen Negative Urine Methadone Screen Negative Ur Barbiturates Screen Negative Ur Phencyclidine Scrn Negative Ur Amphetamines Screen Negative U Benzodiazepines Scrn Negative U Oth Cocaine Metabols Positive H U Cannabinoids Screen Positive H Alcohol, Quantitative Blood Type A POSITIVE Antibody Screen Negative 11/04/17 11/04/17 11/04/17 03:12 04:22 06:19 WBC RBC Hgb Hct MCV MCH MCHC RDW Plt Count MPV Neut % (Auto) Lymph % (Auto) Callahan % (Auto) Eos % (Auto) Baso % (Auto) Neut # (Auto) Lymph # (Auto) Callahan # (Auto) Eos # (Auto) Baso # (Auto) Differential Comment PT INR APTT pO2 37 VBG pH 7.35 VBG pCO2 43 VBG HCO3 22.5 VBG Total CO2 25.0 VBG O2 Sat (Calc) 70.5 H VBG Base Excess -2.0 L VBG Potassium 4.2 Glucose 421 H* Lactate 11.5 H* Crit Value Called To Jaydon burden rn Crit Value Called By Lay grants administrator Crit Value Read Back Y Blood Gas Notified Time 321 Sodium 141.0 Potassium Chloride 92.0 L Carbon Dioxide Anion Gap BUN Creatinine Est GFR ( Amer) Est GFR (Non-Af Amer) Random Glucose Lactic Acid 1.4 Calcium Total Bilirubin AST ALT Alkaline Phosphatase Total Protein Albumin Globulin Albumin/Globulin Ratio Lipase Venous Blood Potassium 4.2 Urine Color Urine Clarity Urine pH Ur Specific [place] Urine Protein Urine Glucose (UA) Urine Ketones Urine Blood Urine Nitrate Urine Bilirubin Urine Urobilinogen Ur Leukocyte Esterase Urine WBC (Auto) Urine RBC (Auto) Ur Squamous Epith Cells Urine Bacteria Urine HCG, Qual Stool Occult Blood Negative Urine Opiates Screen Urine Methadone Screen Ur Barbiturates Screen Ur Phencyclidine Scrn Ur Amphetamines Screen U Benzodiazepines Scrn U Oth Cocaine Metabols U Cannabinoids Screen Alcohol, Quantitative Blood Type Antibody Screen 11/04/17 11/04/17 08:24 08:42 WBC 12.7 H RBC 3.63 L Hgb 10.6 L D Hct 31.1 L MCV 85.7 D MCH 29.3 MCHC 34.2 RDW 13.6 Plt Count 301 MPV 8.7 Neut % (Auto) 67.0 Lymph % (Auto) 24.6 Callahan % (Auto) 7.8 Eos % (Auto) 0.3 Baso % (Auto) 0.3 Neut # (Auto) 8.5 H Lymph # (Auto) 3.1 Callahan # (Auto) 1.0 H Eos # (Auto) 0.0 Baso # (Auto) 0.0 Differential Comment PT INR APTT pO2 52 VBG pH 7.40 VBG pCO2 46 VBG HCO3 27.0 VBG Total CO2 29.9 H VBG O2 Sat (Calc) 89.5 H VBG Base Excess 3.0 H VBG Potassium 2.6 L Glucose 32 L* D Lactate 1.5 Crit Value Called To Navjot villalpando Crit Value Called By Sean espinosa Crit Value Read Back Y Blood Gas Notified Time 831 Sodium 144.0 Potassium Chloride 110.0 H Carbon Dioxide Anion Gap BUN Creatinine Est GFR ( Amer) Est GFR (Non-Af Amer) Random Glucose Lactic Acid Calcium Total Bilirubin AST ALT Alkaline Phosphatase Total Protein Albumin Globulin Albumin/Globulin Ratio Lipase Venous Blood Potassium 2.6 L Urine Color Urine Clarity Urine pH Ur Specific [place] Urine Protein Urine Glucose (UA) Urine Ketones Urine Blood Urine Nitrate Urine Bilirubin Urine Urobilinogen Ur Leukocyte Esterase Urine WBC (Auto) Urine RBC (Auto) Ur Squamous Epith Cells Urine Bacteria Urine HCG, Qual Stool Occult Blood Urine Opiates Screen Urine Methadone Screen Ur Barbiturates Screen Ur Phencyclidine Scrn Ur Amphetamines Screen U Benzodiazepines Scrn U Oth Cocaine Metabols U Cannabinoids Screen Alcohol, Quantitative Blood Type Antibody Screen Assessment & Plan - Assessment and Plan (Free Text) Plan: 31 year old female with PMHx of DM with history of DKA, anemia, and cocaine use disorder admitted for GI bleed. Upper GI bleed Admit to telemetry CT abdomen IV contrast 11/04/17-diffuse gastric wall thickening, worrisome for gastritis. GI, Dr. Augustine, consulted. Help appreciated. lack of melena, occult blood loss or elevation of BUN/Cr ratio points against this drop in H/H being related to an active GI bleed. This may be dilutional due to large fluid volume given. IV Protonix q12h. Stool for OB. type and screen- 2 units BRBC Pt with 2 large bore IVs: R AC, L IJ protonix 40mg IV Q12- monitor for side effect of thrombocytopenia NS @ 125cc/hr Admits to cocaine use 2 days ago Denies NSAID use Blood alcohol level: f/u CBC Q6H Hgb: 14->10 ->10, likely to be result of IVF in ED Hct: 44->31 ->[address] abdomen IV contrast 11/04/17-diffuse gastric wall thickening, worrisome for gastritis. Lipase: 38 Transaminitis Hepatitis panel Abdominal US complete: f/u DM A1c Lipid panel Hypoglycemic protocol acccucheck Q6H accucheck 9am 28->70-> 120 Hold insulin Cocaine use No beta blockers Nausea/Vomiting Zofran 4mg IV Q6H PRN Dysuria/Frquency straight cath urine culture UA: 3+ glucose, 2+ ketones, 1+ blood, 10 RBC, rare bacteria Anemia Reticulocyte count feritin Iron studies: Serum Fe Iron saturation TIBC Folate B12 gastric occult blood Prophylactic measures chemical VTE prophylaxis contraindicated SCDs-contraindicated, hx of blood clot protonix 40mg IV Q12 - Date & Time Date: 11/04/17 Time: 09:00
[2017-11-04] MEDS: Potassium Ch 20mEq in D5-1/2NS 1,000 ML IV SCH (11:20)
--- NOTE | 2017-11-04 12:23 | CT ---
Date of service: 11/04/2017 PROCEDURE: CT HEAD WITHOUT CONTRAST. HISTORY: agitation COMPARISON: None available. TECHNIQUE: Axial computed tomography images were obtained through the head/brain without intravenous contrast. Radiation dose: Total exam DLP = 941.65 mGy-cm. This CT exam was performed using one or more of the following dose reduction techniques: Automated exposure control, adjustment of the mA and/or kV according to patient size, and/or use of iterative reconstruction technique. FINDINGS: HEMORRHAGE: No intracranial hemorrhage. BRAIN: Normal kohler-white matter differentiation and density are appreciated throughout the cerebrum and cerebellum with the brainstem appearing unremarkable as well. There is no mass effect. There is no suspicious extra-axial fluid collection and the midline brain anatomy appears diffusely unremarkable. VENTRICLES: Unremarkable. No hydrocephalus. CALVARIUM: No destructive bony lesion or displaced fracture identified including through the skullbase. PARANASAL SINUSES: . MASTOID AIR CELLS: Unremarkable as visualized. No inflammatory changes. OTHER FINDINGS: None. IMPRESSION: Unremarkable noncontrast head CT.
[2017-11-04 12:48] LABS: ALB/GLOB RATIO 1.2 (1.0-2.1); ALBUMIN 3.7 g/dL (3.5-5.0); ALT/SGPT 71 U/L (9-52); AST/SGOT 42 U/L (14-36); BLOOD UREA NITROGEN 13 mg/dL (7-17); GFR AFRICAN-AMERICAN > 60; GFR NON-AFRICAN AMERICAN > 60
--- NOTE | 2017-11-04 12:48 | CP.PCM.CON ---
History of Present Illness - History of Present Illness History of Present Illness: 31 year old female seen in ED and uncooperative to exam and questioning. Asked to evaluate for possible GI bleed as she presented with diffuse abdominal pain, bilious emesis with some blood tinging but no hematemesis. Rectal exam in ED failed to show any stool, blood and FOB was negative. She was given 4 liters of IV fluids due to dehydration and uncontrolled diabetes but noted a drop in Hgb from 14 to 10. She does not answer questioning about her past or current history. There is question of her taking Elliquis but for no known reason. She was + for cocaine and THC. Review of Systems - Review of Systems Systems not reviewed;Unavailable: Altered Mental Status, Uncooperative Past Patient History - Past Social History Smoking Status: Heavy Smoker > 10 Cigarettes Daily - ENDOCRINE/METABOLIC Hx Diabetes Mellitus Type 1: Yes Other/Comment: DKA - PSYCHIATRIC Hx Anxiety: Yes Hx Substance Use: Yes Meds Allergies/Adverse Reactions: Allergies Allergy/AdvReac Type Severity Reaction Status Date / Time No Known Allergies Allergy Verified 11/04/17 01:57 - Medications Medications: Current Medications Dextrose (Dextrose 50% Inj) 0 ml IV STAT PRN; Protocol PRN Reason: Hypoglycemia Protocol Dextrose (Glutose 15) 0 gm PO ONCE PRN; Protocol PRN Reason: Hypoglycemia Protocol Glucagon (Glucagen Diagnostic Kit) 0 mg IM STAT PRN; Protocol PRN Reason: Hypoglycemia Protocol Dextrose (Dextrose 5% In Water 1000 Ml) 1,000 mls @ 0 mls/hr IV .Q0M PRN; Protocol; Per Protocol PRN Reason: Hypoglycemia Protocol Pantoprazole Sodium 80 mg/ (Sodium Chloride) 100 mls @ 10 mls/hr IVPB .Q10H MARY PRN Reason: 8 MG/HR Last Admin: 11/04/17 10:04 Dose: 10 mls/hr Piperacillin Sod/Tazobactam (Sod 3.375 gm/ Sodium Chloride) 100 mls @ 200 mls/ hr IVPB Q6H MARY PRN Reason: Protocol Potassium Chloride/Dextrose/Sod Cl (Potassium Chl 20 Meq In D5-1/2ns) 1,000 mls @ 100 mls/hr IV .Q10H MARY Last Admin: 11/04/17 11:20 Dose: 100 mls/hr Ondansetron HCl (Zofran Inj) 4 mg IVP Q6 PRN PRN Reason: Nausea/Vomiting Physical Exam - Constitutional Appears: No Acute Distress, Other (Lying on side in position and not responding to verbal questioning or nudging of her shoulder.) - Respiratory Exam Respiratory Exam: NORMAL BREATHING PATTERN - Cardiovascular Exam Cardiovascular Exam: REGULAR RHYTHM, +S1 - GI/Abdominal Exam GI & Abdominal Exam: Hyperactive Bowel Sounds, Soft. absent: Tenderness Additional comments: uncooperative with examination that was limited by patients position - Rectal Exam Rectal Exam: Deferred - Extremities Exam Extremities exam: Positive for: normal inspection Results - Vital Signs Recent Vital Signs: Last Vital Signs Temp 99.6 F 11/04/17 12:35 Pulse 100 H 11/04/17 12:35 Resp 20 11/04/17 12:35 BP 122/83 11/04/17 12:35 Pulse Ox 97 11/04/17 12:35 - Labs Result Diagrams: 11/04/17 08:42 11/04/17 02:29 Labs: Laboratory Results - last 24 hr 11/04/17 11/04/17 11/04/17 02:29 02:29 02:42 WBC 15.5 H RBC 5.02 Hgb 14.8 Hct 44.8 MCV 89.1 MCH 29.4 MCHC 33.0 RDW 14.5 Plt Count 338 MPV 10.1 Neut % (Auto) 80.2 H Lymph % (Auto) 14.3 L [place] % (Auto) 4.9 Eos % (Auto) 0.1 Baso % (Auto) 0.5 Neut # (Auto) 12.4 H Lymph # (Auto) 2.2 [place] # (Auto) 0.8 Eos # (Auto) 0.0 Baso # (Auto) 0.1 Differential Comment Retic Count PT 9.0 L INR 0.8 APTT 28 pO2 VBG pH VBG pCO2 VBG HCO3 VBG Total CO2 VBG O2 Sat (Calc) VBG Base Excess VBG Potassium Glucose Lactate Crit Value Called To Crit Value Called By Crit Value Read Back Blood Gas Notified Time Sodium 139 Potassium 4.5 Chloride 90 L Carbon Dioxide 16 L Anion Gap 38 H BUN 21 H Creatinine 0.8 Est GFR ( Amer) > 60 Est GFR (Non-Af Amer) > 60 Random Glucose 461 H* Lactic Acid Calcium 10.1 Total Bilirubin 0.5 AST 76 H ALT 103 H Alkaline Phosphatase 156 H Total Protein 9.5 H Albumin 5.3 H Globulin 4.3 H Albumin/Globulin Ratio 1.2 Lipase 38 Venous Blood Potassium Urine Color Urine Clarity Urine pH Ur Specific [place] Urine Protein Urine Glucose (UA) Urine Ketones Urine Blood Urine Nitrate Urine Bilirubin Urine Urobilinogen Ur Leukocyte Esterase Urine WBC (Auto) Urine RBC (Auto) Ur Squamous Epith Cells Urine Bacteria Urine HCG, Qual Stool Occult Blood Urine Opiates Screen Urine Methadone Screen Ur Barbiturates Screen Ur Phencyclidine Scrn Ur Amphetamines Screen U Benzodiazepines Scrn U Oth Cocaine Metabols U Cannabinoids Screen Alcohol, Quantitative < 10 Blood Type Antibody Screen 11/04/17 11/04/17 11/04/17 02:56 03:08 03:08 WBC RBC Hgb Hct MCV MCH MCHC RDW Plt Count MPV Neut % (Auto) Lymph % (Auto) [place] % (Auto) Eos % (Auto) Baso % (Auto) Neut # (Auto) Lymph # (Auto) [place] # (Auto) Eos # (Auto) Baso # (Auto) Differential Comment Retic Count PT INR APTT pO2 VBG pH VBG pCO2 VBG HCO3 VBG Total CO2 VBG O2 Sat (Calc) VBG Base Excess VBG Potassium Glucose Lactate Crit Value Called To Crit Value Called By Crit Value Read Back Blood Gas Notified Time Sodium Potassium Chloride Carbon Dioxide Anion Gap BUN Creatinine Est GFR ( Amer) Est GFR (Non-Af Amer) Random Glucose Lactic Acid Calcium Total Bilirubin AST ALT Alkaline Phosphatase Total Protein Albumin Globulin Albumin/Globulin Ratio Lipase Venous Blood Potassium Urine Color Straw Urine Clarity Clear Urine pH 5.0 Ur Specific [place] 1.023 Urine Protein Negative Urine Glucose (UA) 3+ H Urine Ketones 2+ H Urine Blood 1+ H Urine Nitrate Negative Urine Bilirubin Negative Urine Urobilinogen Normal Ur Leukocyte Esterase Neg Urine WBC (Auto) 4 Urine RBC (Auto) 10 H Ur Squamous Epith Cells < 1 Urine Bacteria Rare Urine HCG, Qual Negative Stool Occult Blood Urine Opiates Screen Negative Urine Methadone Screen Negative Ur Barbiturates Screen Negative Ur Phencyclidine Scrn Negative Ur Amphetamines Screen Negative U Benzodiazepines Scrn Negative U Oth Cocaine Metabols Positive H U Cannabinoids Screen Positive H Alcohol, Quantitative Blood Type A POSITIVE Antibody Screen Negative 11/04/17 11/04/17 11/04/17 03:12 04:22 06:19 WBC RBC Hgb Hct MCV MCH MCHC RDW Plt Count MPV Neut % (Auto) Lymph % (Auto) [place] % (Auto) Eos % (Auto) Baso % (Auto) Neut # (Auto) Lymph # (Auto) [place] # (Auto) Eos # (Auto) Baso # (Auto) Differential Comment Retic Count PT INR APTT pO2 37 VBG pH 7.35 VBG pCO2 43 VBG HCO3 22.5 VBG Total CO2 25.0 VBG O2 Sat (Calc) 70.5 H VBG Base Excess -2.0 L VBG Potassium 4.2 Glucose 421 H* Lactate 11.5 H* Crit Value Called To Jaydon burden rn Crit Value Called By Lay esthetician facialist Crit Value Read Back Y Blood Gas Notified Time 321 Sodium 141.0 Potassium Chloride 92.0 L Carbon Dioxide Anion Gap BUN Creatinine Est GFR ( Amer) Est GFR (Non-Af Amer) Random Glucose Lactic Acid 1.4 Calcium Total Bilirubin AST ALT Alkaline Phosphatase Total Protein Albumin Globulin Albumin/Globulin Ratio Lipase Venous Blood Potassium 4.2 Urine Color Urine Clarity Urine pH Ur Specific [place] Urine Protein Urine Glucose (UA) Urine Ketones Urine Blood Urine Nitrate Urine Bilirubin Urine Urobilinogen Ur Leukocyte Esterase Urine WBC (Auto) Urine RBC (Auto) Ur Squamous Epith Cells Urine Bacteria Urine HCG, Qual Stool Occult Blood Negative Urine Opiates Screen Urine Methadone Screen Ur Barbiturates Screen Ur Phencyclidine Scrn Ur Amphetamines Screen U Benzodiazepines Scrn U Oth Cocaine Metabols U Cannabinoids Screen Alcohol, Quantitative Blood Type Antibody Screen 11/04/17 11/04/17 11/04/17 08:24 08:42 10:54 WBC 12.7 H Cancelled RBC 3.63 L Cancelled Hgb 10.6 L D Cancelled Hct 31.1 L Cancelled MCV 85.7 D Cancelled MCH 29.3 Cancelled MCHC 34.2 Cancelled RDW 13.6 Cancelled Plt Count 301 Cancelled MPV 8.7 Cancelled Neut % (Auto) 67.0 Cancelled Lymph % (Auto) 24.6 Cancelled [place] % (Auto) 7.8 Cancelled Eos % (Auto) 0.3 Cancelled Baso % (Auto) 0.3 Cancelled Neut # (Auto) 8.5 H Cancelled Lymph # (Auto) 3.1 Cancelled [place] # (Auto) 1.0 H Cancelled Eos # (Auto) 0.0 Cancelled Baso # (Auto) 0.0 Cancelled Differential Comment Retic Count 1.1 PT INR APTT pO2 52 VBG pH 7.40 VBG pCO2 46 VBG HCO3 27.0 VBG Total CO2 29.9 H VBG O2 Sat (Calc) 89.5 H VBG Base Excess 3.0 H VBG Potassium 2.6 L Glucose 32 L* D Lactate 1.5 Crit Value Called To Navjot villalpando Crit Value Called By Sean espinosa Crit Value Read Back Y Blood Gas Notified Time 831 Sodium 144.0 Potassium Chloride 110.0 H Carbon Dioxide Anion Gap BUN Creatinine Est GFR ( Amer) Est GFR (Non-Af Amer) Random Glucose Lactic Acid Calcium Total Bilirubin AST ALT Alkaline Phosphatase Total Protein Albumin Globulin Albumin/Globulin Ratio Lipase Venous Blood Potassium 2.6 L Urine Color Urine Clarity Urine pH Ur Specific [place] Urine Protein Urine Glucose (UA) Urine Ketones Urine Blood Urine Nitrate Urine Bilirubin Urine Urobilinogen Ur Leukocyte Esterase Urine WBC (Auto) Urine RBC (Auto) Ur Squamous Epith Cells Urine Bacteria Urine HCG, Qual Stool Occult Blood Urine Opiates Screen Urine Methadone Screen Ur Barbiturates Screen Ur Phencyclidine Scrn Ur Amphetamines Screen U Benzodiazepines Scrn U Oth Cocaine Metabols U Cannabinoids Screen Alcohol, Quantitative Blood Type Antibody Screen Assessment & Plan (1) Hematemesis Assessment and Plan: Patient with multiple episodes of emesis some which were blood tinged. Lack of melena, occult blood loss or elevation of BUN/Cr ratio points against this drop in H/H being related to an active GI bleed. This may be dilutional due to large fluid volume given over a short period of time. Repeat CBC discussed with Dr Rao REES Protonix q12h Stool for OB Will observe and determine if EGD is needed during admission or in event of acute bleeding. Keep NPO for now. Status: Acute (2) Abdominal pain Assessment and Plan: as above. May also be related to active cocaine abuse and vascular vasoconstriction. Status: Acute (3) Substance abuse Status: Acute (4) Abnormal transaminases Assessment and Plan: Check viral and autoimmune markers. Repeat LFTs. Status: Acute
[2017-11-04 12:57] LABS: IRON 40 ug/dL (37-170)
[2017-11-04 12:59] LABS: TOTAL IRON BINDING CAPACITY 330 ug/dL (250-450)
[2017-11-04 13:00] LABS: % IRON SATURATION 12 (20-55)
[2017-11-04 13:23] LABS: FERRITIN 69.2 ng/mL
--- NOTE | 2017-11-04 13:27 | CT ---
Date of service: 11/04/2017 PROCEDURE: CT Abdomen and Pelvis with contrast HISTORY: hematemesis COMPARISON: None. TECHNIQUE: Following the intravenous administration of iodinated contrast material, a CT examination of the abdomen and pelvis performed from the domes of the diaphragms to the symphysis pubis with reformatted datasets provided in axial, sagittal and coronal planes. Oral contrast was not administered as per referring physician request. Contrast dose: Visipaque 320, 100 cc Radiation dose: Total exam DLP = 305.82 mGy-cm. This CT exam was performed using one or more of the following dose reduction techniques: Automated exposure control, adjustment of the mA and/or kV according to patient size, and/or use of iterative reconstruction technique. FINDINGS: LOWER THORAX: Limited linear atelectasis or fibrosis in the bilateral lung bases, right greater than left. There are 2 tiny nodules identified in the right lower lobe base anteriorly in image 7 series 5 measuring 3 mm in each case without calcification. LIVER: Unremarkable. No gross lesion or ductal dilatation. GALLBLADDER AND BILE DUCTS: Unremarkable. PANCREAS: Unremarkable. No gross lesion or ductal dilatation. SPLEEN: Unremarkable. ADRENALS: Unremarkable. No mass. KIDNEYS AND URETERS: Unremarkable. No hydronephrosis. No solid mass. VASCULATURE: Unremarkable. No aortic aneurysm. BOWEL: Evaluation of the gastrointestinal tract is limited due the lack of oral contrast administration. Stomach is partially collapsed and the lack oral contrast limits evaluation of the wall. Thickening of the wall is difficult completely exclude diffusely and gastritis is questioned. This could be a function of contraction/ collapse rather than intrinsic pathology nevertheless. No bowel obstruction is identified. Limited fecal loading is seen throughout the colon on the small bowel is diffusely collapsed. APPENDIX: Normal appendix. PERITONEUM: Unremarkable. No free fluid. No free air. LYMPH NODES: Unremarkable. No enlarged lymph nodes. BLADDER: Unremarkable. REPRODUCTIVE: There is fluid in the pelvis inferiorly and bilateral nasal cyst is seen measuring 4.1 x 2.7 cm at the right and 2.6 x 1.6 cm of the left appeared hydrosalpinx is not excluded at the right adnexa compartment further as there is a tubular shaped fluid filled structure lateral to the right side of the uterus. Small-bowel may occasionally appear this way, however, no additional small-bowel loops are similar to this fluid-filled structure. The patient's parent clinical presentation is not one suggesting hydrosalpinx but follow-up pelvic ultrasound should be considered as well as clinical correlation. BONES: No acute fracture. OTHER FINDINGS: None. IMPRESSION: 1. Limit evaluation the gastrointestinal tract due to lack of oral contrast. The stomach is collapsed and the bowel is unremarkable appearing as discussed above. No bowel obstruction evident. Thickening of the stomach wall may be a function of collapse or gastritis. Clinically correlate further. 2. Bilateral adnexal cysts are identified. Further, a tubular fluid-filled structure seen at the right X compartment potentially reflecting hydrosalpinx. There is a limited possibility though this is small-bowel but no additional small-bowel loops in the pelvis are similar. Follow-up transvaginal pelvic ultrasound is recommended as well as clinical correlation. PA review submitted.
[2017-11-04] MEDS: Piperacillin/Tazobact 3.375 GM in Sodium Chloride 100 ML IVPB SCH ×4 (13:37→22:20)
[2017-11-04 13:52] LABS: FOLATE 15.6 ng/mL
[2017-11-04 14:12] LABS: HEMOGLOBIN 10.5 g/dL (11.0-16.0); MEAN CELL VOLUME 86.4 fL (81.0-99.0); MEAN CORPUSCULAR HEMOGLOBIN 28.2 pg (27.0-31.0); MEAN CORPUSCULAR HGB CONC 32.7 g/dL (33.0-37.0); MEAN PLATELET VOLUME 8.3 fL (7.2-11.7); RBC 3.71 Mil/uL (3.80-5.20); WHITE BLOOD COUNT 13.2 K/uL (4.8-10.8)
[2017-11-04] MEDS ORDERED: Simethicone 80 mg Chewtab PO STA (21:54)
[2017-11-05] MEDS: Piperacillin/Tazobact 3.375 GM in Sodium Chloride 100 ML IVPB SCH ×4 (04:17→22:41)
[2017-11-05 07:56] LABS: HEMOGLOBIN 10.7 g/dL (11.0-16.0); MEAN CORPUSCULAR HEMOGLOBIN 29.7 pg (27.0-31.0); MEAN CORPUSCULAR HGB CONC 33.3 g/dL (33.0-37.0); RBC 3.59 Mil/uL (3.80-5.20); RED CELL DISTRIBUTION WIDTH 14.6 % (11.5-14.5); WHITE BLOOD COUNT 8.2 K/uL (4.8-10.8)
[2017-11-05 08:06] LABS: MEAN CELL VOLUME 89.2 fL (81.0-99.0)
[2017-11-05 08:23] LABS: ALB/GLOB RATIO 1.2 (1.0-2.1); ALBUMIN 3.3 g/dL (3.5-5.0); ALT/SGPT 64 U/L (9-52); AST/SGOT 52 U/L (14-36); BLOOD UREA NITROGEN 7 mg/dL (7-17); CALCIUM 8.3 mg/dl (8.6-10.4); GFR AFRICAN-AMERICAN > 60; GFR NON-AFRICAN AMERICAN > 60
[2017-11-05 08:47] LABS: HEPATITIS B SURFACE AG Negative (NEGATIVE)
[2017-11-05 08:53] LABS: HEPATITIS A IGM NEGATIVE (NEGATIVE); HEPATITIS B CORE AB NEGATIVE (NEGATIVE)
[2017-11-05] MEDS: (Novolin R) Insulin Human Regular 100 units/ml vial SC SCH ×4 (09:35→21:25)
[2017-11-05] MEDS: Potassium Ch 20mEq in D5-1/2NS 1,000 ML IV SCH ×2 (09:37→17:20)
--- NOTE | 2017-11-05 09:53 | US ---
Date of service: 11/05/2017 HISTORY: Elevated LFTs COMPARISON: None. TECHNIQUE: Sonographic evaluation of the abdomen. FINDINGS: LIVER: Measures 19.7 cm. Diffusely increased echogenicity of the liver parenchyma. Consistent with fatty infiltration. Smooth contour. No mass. No intrahepatic biliary ductal dilatation. GALLBLADDER: Unremarkable. No gallstones. COMMON BILE DUCT: Measures 2 mm. No stones. No dilatation. PANCREAS: Unremarkable as visualized. No mass. No ductal dilatation. RIGHT KIDNEY: Measures 11.6cm. Normal echogenicity. No calculus, mass, or hydronephrosis. LEFT KIDNEY: Measures 11.5cm. Normal echogenicity. No calculus, mass, or hydronephrosis. SPLEEN: Mild splenomegaly. The spleen measures 13.1 cm in greatest dimension. AORTA: No aneurysmal dilatation. IVC: Unremarkable. OTHER FINDINGS: None. IMPRESSION: Mild hepatosplenomegaly. Fatty infiltration of the liver. No evidence of cholelithiasis or cholecystitis.
[2017-11-05 10:06] LABS: HEPATITIS C ANTIBODY REACTIVE (NEGATIVE)
--- NOTE | 2017-11-05 10:40 | VASCLAB ---
Date of service: 11/05/2017 PROCEDURE: Upper Extremity Venous Duplex Exam HISTORY: DVT PRIORS: None. TECHNIQUE: Bilateral upper extremity, internal jugular, subclavian, axillary, brachial, ulnar, radial, basilic and upper cephalic veins were evaluated. Flow was assessed with color Doppler, compressibility, assessment of phasic flow and augmentation response. Report prepared by Carlos Cerrato, JANES, RVT FINDINGS: RIGHT: 1. Internal Jugular: 1.1. Compressibility - Fully compressible: Thrombus - None : Flow - Phasic: Augmentation -Normal: Reflux - None. 2. Subclavian: 2.1. Compressibility - Fully compressible: Thrombus - None : Flow - Phasic: Augmentation -Normal: Reflux - None. 3. Axillary: 3.1. Compressibility - Fully compressible: Thrombus - None : Flow - Phasic: Augmentation -Normal: Reflux - None. 4. Brachial: 4.1. Compressibility - Fully compressible: Thrombus - None: Flow - Phasic: Augmentation -Normal: Reflux - None. 5. Ulnar: 5.1. Compressibility - Fully compressible: Thrombus - None: Flow - Phasic: Augmentation -Normal: Reflux - None. 6. Radial: 6.1. Compressibility - Fully compressible: Thrombus - None: Flow - Phasic: Augmentation - Normal: Reflux - None. 7. Cephalic: 7.1. Compressibility - Fully compressible: Thrombus - None: Flow - Phasic: Augmentation -Normal: Reflux - None. 8. Basilic: 8.1. Compressibility - Fully compressible: Thrombus - None: Flow - Phasic: Augmentation -Normal: Reflux - None. LEFT: 1. Internal Jugular: 1.1. Compressibility - Fully compressible: Thrombus - None : Flow - Phasic: Augmentation -Normal: Reflux - None. 2. Subclavian: 2.1. Compressibility - Fully compressible: Thrombus - None : Flow - Phasic: Augmentation -Normal: Reflux - None. 3. Axillary: 3.1. Compressibility - Fully compressible: Thrombus - None : Flow - Phasic: Augmentation -Normal: Reflux - None. 4. Brachial: 4.1. Compressibility - Fully compressible: Thrombus - None: Flow - Phasic: Augmentation -Normal: Reflux - None. 5. Ulnar: 5.1. Compressibility - Fully compressible: Thrombus - None: Flow - Phasic: Augmentation -Normal: Reflux - None. 6. Radial: 6.1. Compressibility - Fully compressible: Thrombus - None: Flow - Phasic: Augmentation - Normal: Reflux - None. 7. Cephalic: 7.1. Compressibility - Fully compressible: Thrombus - None: Flow - Phasic: Augmentation -Normal: Reflux - None. 8. Basilic: 8.1. Compressibility - Fully compressible: Thrombus - None: Flow - Phasic: Augmentation -Normal: Reflux - None. OTHER FINDINGS: Right: None. Left: None. IMPRESSION: Right: No evidence of vein thrombosis of the right upper extremity with excellent venous flow. Normal valve function noted of the right side. Left: No evidence of vein thrombosis of the left upper extremity with excellent venous flow. Normal valve function noted of the left side.
--- NOTE | 2017-11-05 10:40 | VASCLAB ---
Date of service: 11/05/2017 PROCEDURE: Lower Extremity Venous Duplex Exam. HISTORY: DVT PRIORS: None. TECHNIQUE: Bilateral common femoral, femoral, popliteal and posterior tibial, peroneal and great saphenous veins were evaluated. Flow was assessed with color Doppler, compressibility, assessment of phasic flow and augmentation response. Report prepared by JANES Mejia, RVT FINDINGS: RIGHT: 1. Common Femoral Vein: 1.1. Compressibility - Fully compressible: Thrombus - None : Flow - Phasic: Augmentation -Normal: Reflux - None. 2. Femoral Vein: 2.1. Compressibility - Fully compressible: Thrombus - None : Flow - Phasic: Augmentation -Normal: Reflux - None. 3. Popliteal Vein: 3.1. Compressibility - Fully compressible: Thrombus - None : Flow - Phasic: Augmentation -Normal: Reflux - None. 4. Posterior Tibial Vein: 4.1. Compressibility - Fully compressible: Thrombus - None: Flow - Phasic: Augmentation -Normal: Reflux - None. 5. Peroneal Vein: 5.1. Compressibility - Fully compressible: Thrombus - None: Flow - Phasic: Augmentation -Normal: Reflux - None. 6. Great Saphenous Vein: 6.1. Compressibility - Fully compressible: Thrombus - None: Flow - Phasic: Augmentation - Normal: Reflux - None. LEFT: 1. Common Femoral Vein: 1.1. Compressibility - Fully compressible: Thrombus - None: Flow - Phasic: Augmentation -Normal: Reflux - None. 2. Femoral Vein: 2.1. Compressibility - Fully compressible: Thrombus - None: Flow - Phasic: Augmentation -Normal: Reflux - None. 3. Popliteal Vein: 3.1. Compressibility - Fully compressible: Thrombus - None : Flow - Phasic: Augmentation -Normal: Reflux - None. 4. Posterior Tibial Vein: 4.1. Compressibility - Fully compressible: Thrombus - None: Flow - Phasic: Augmentation -Normal: Reflux - None. 5. Peroneal Vein: 5.1. Compressibility - Fully compressible: Thrombus - None: Flow - Phasic: Augmentation -Normal: Reflux - None. 6. Great Saphenous Vein: 6.1. Compressibility - Fully compressible: Thrombus - None: Flow - Phasic: Augmentation - Normal: Reflux - None. OTHER FINDINGS: Right: None significant. Left: None significant. IMPRESSION: Right: No evidence of deep or superficial vein thrombosis of the right lower extremity. Normal valve function noted of the right side. Left: No evidence of deep or superficial vein thrombosis of the left lower extremity. Normal valve function noted of the left side.
--- NOTE | 2017-11-05 17:25 | CP.PCM.PN ---
Subjective - Date & Time of Evaluation Date of Evaluation: 11/05/17 Time of Evaluation: 17:22 - Subjective Subjective: Tolerated sandwich last night but vomiting after soup broth today. Reports she saw bloody emesis at home before admission. Hgb=10.7 and stable. No melena. Agreeable to EGD Objective - Vital Signs/Intake and Output Vital Signs (last 24 hours): Temp Pulse Resp BP Pulse Ox 98.6 F 90 20 155/98 H 98 11/05/17 12:07 11/05/17 16:25 11/05/17 07:00 11/05/17 07:00 11/05/17 07:00 Intake and Output: 11/05/17 11/05/17 06:59 18:59 Intake Total 800 Balance 800 - Medications Medications: Current Medications Dextrose (Dextrose 50% Inj) 0 ml IV STAT PRN; Protocol PRN Reason: Hypoglycemia Protocol Last Admin: 11/04/17 18:39 Dose: 50 ml Dextrose (Glutose 15) 0 gm PO ONCE PRN; Protocol PRN Reason: Hypoglycemia Protocol Glucagon (Glucagen Diagnostic Kit) 0 mg IM STAT PRN; Protocol PRN Reason: Hypoglycemia Protocol Dextrose (Dextrose 5% In Water 1000 Ml) 1,000 mls @ 0 mls/hr IV .Q0M PRN; Protocol; Per Protocol PRN Reason: Hypoglycemia Protocol Piperacillin Sod/Tazobactam (Sod 3.375 gm/ Sodium Chloride) 100 mls @ 200 mls/ hr IVPB Q6H MARY PRN Reason: Protocol Last Admin: 11/05/17 17:20 Dose: 200 mls/hr Potassium Chloride/Dextrose/Sod Cl (Potassium Chl 20 Meq In D5-1/2ns) 1,000 mls @ 100 mls/hr IV .Q10H MARY Last Admin: 11/05/17 17:20 Dose: 100 mls/hr Insulin Human Regular (Novolin R) 0 unit SC ACHS MARY PRN Reason: Protocol Last Admin: 11/05/17 12:05 Dose: 8 u Ondansetron HCl (Zofran Inj) 4 mg IVP Q6 PRN PRN Reason: Nausea/Vomiting Last Admin: 11/05/17 02:28 Dose: 4 mg Pantoprazole Sodium (Protonix Inj) 40 mg IVP Q12H MARY Last Admin: 07/23/18 14:12 Dose: 40 mg - Labs Labs: 11/05/17 07:37 11/05/17 07:37 PT 9.0 SECONDS (9.7-12.2) L 11/04/17 02:42 INR 0.8 11/04/17 02:42 APTT 28 SECONDS (21-34) 11/04/17 02:42 - Constitutional Appears: No Acute Distress - Head Exam Head Exam: ATRAUMATIC, NORMOCEPHALIC - Respiratory Exam Respiratory Exam: NORMAL BREATHING PATTERN - Cardiovascular Exam Cardiovascular Exam: REGULAR RHYTHM, +S1 - GI/Abdominal Exam GI & Abdominal Exam: Soft, Hyperactive Bowel Sounds. absent: Distended, Guarding, Tenderness, Mass, Organomegaly, Rebound - Extremities Exam Extremities Exam: Normal Inspection Assessment and Plan (1) Hematemesis Assessment & Plan: Does not appear to be actively bleeding but in view of history and continued N/ V will plan for EGD to determine if she may have PUD causing Gastric outlet obstruction, mass, MWT or gastroparesis from her labile diabetes. (sugars all over the map) Advance to soft diet at patient request Continue Protonix twice daily Status: Acute (2) Abdominal pain Assessment & Plan: Improving with less emesis. Status: Acute (3) Substance abuse Assessment & Plan: Psych consultation advised Status: Acute (4) Abnormal transaminases Assessment & Plan: Viral and autoimmune markers pending. Monitor LFT's. Will likely need to follow this after discharge in the GI clinic. Status: Acute
--- NOTE | 2017-11-05 17:28 | CP.PCM.PN ---
<Remedios Rodríguez P - Last Filed: 11/05/17 23:24> Subjective - Date & Time of Evaluation Date of Evaluation: 11/05/17 Time of Evaluation: 09:00 - Subjective Subjective: PGY-1 note for hospitalist service. Patient was seen and evaluated at bedside. She is laying in bed, in no acute distress. Today patient complains of having loose bowel movements described as "black and gooey." She states her urine is foul smelling for the last two days. She also complains of nausea, but denies vomiting. Patient reports shallowness to her breathing due to abdominal pain on deep inspiration. Denies chest pain, lightheadedness and dizziness. Patient was informed of her positive hepitits C antibody reactivity, the importance of safe sex practices, and abstinence from IV drug use. Objective - Vital Signs/Intake and Output Vital Signs (last 24 hours): Temp Pulse Resp BP Pulse Ox 98.6 F 90 20 155/98 H 98 11/05/17 12:07 11/05/17 16:25 11/05/17 07:00 11/05/17 07:00 11/05/17 07:00 Intake and Output: 11/05/17 11/05/17 06:59 18:59 Intake Total 800 Balance 800 - Medications Medications: Current Medications Dextrose (Dextrose 50% Inj) 0 ml IV STAT PRN; Protocol PRN Reason: Hypoglycemia Protocol Last Admin: 11/04/17 18:39 Dose: 50 ml Dextrose (Glutose 15) 0 gm PO ONCE PRN; Protocol PRN Reason: Hypoglycemia Protocol Glucagon (Glucagen Diagnostic Kit) 0 mg IM STAT PRN; Protocol PRN Reason: Hypoglycemia Protocol Dextrose (Dextrose 5% In Water 1000 Ml) 1,000 mls @ 0 mls/hr IV .Q0M PRN; Protocol; Per Protocol PRN Reason: Hypoglycemia Protocol Piperacillin Sod/Tazobactam (Sod 3.375 gm/ Sodium Chloride) 100 mls @ 200 mls/ hr IVPB Q6H MARY PRN Reason: Protocol Last Admin: 11/05/17 17:20 Dose: 200 mls/hr Potassium Chloride/Dextrose/Sod Cl (Potassium Chl 20 Meq In D5-1/2ns) 1,000 mls @ 100 mls/hr IV .Q10H [facility] Last Admin: 11/05/17 17:20 Dose: 100 mls/hr Insulin Human Regular (Novolin R) 0 unit SC ACHS MRAY PRN Reason: Protocol Last Admin: 11/05/17 12:05 Dose: 8 u Ondansetron HCl (Zofran Inj) 4 mg IVP Q6 PRN PRN Reason: Nausea/Vomiting Last Admin: 11/05/17 02:28 Dose: 4 mg Pantoprazole Sodium (Protonix Inj) 40 mg IVP Q12H MARY Last Admin: 11/05/17 14:12 Dose: 40 mg - Labs Labs: 11/05/17 07:37 11/05/17 07:37 PT 9.0 SECONDS (9.7-12.2) L 11/04/17 02:42 INR 0.8 11/04/17 02:42 APTT 28 SECONDS (21-34) 11/04/17 02:42 - Head Exam Head Exam: ATRAUMATIC, NORMOCEPHALIC - Eye Exam Eye Exam: EOMI, Normal appearance - ENT Exam ENT Exam: Mucous Membranes Moist - Neck Exam Neck Exam: Full ROM - Respiratory Exam Respiratory Exam: Clear to Ausculation Bilateral, NORMAL BREATHING PATTERN. absent: Rales, Rhonchi, Wheezes - Cardiovascular Exam Cardiovascular Exam: REGULAR RHYTHM, +S1, +S2 - GI/Abdominal Exam GI & Abdominal Exam: Soft, Normal Bowel Sounds. absent: Tenderness - Extremities Exam Extremities Exam: Full ROM. absent: Joint Swelling, Pedal Edema, Tenderness - Back Exam Back Exam: CVA tenderness (R) - Neurological Exam Neurological Exam: Alert, Awake - Psychiatric Exam Psychiatric exam: Anxious - Skin Skin Exam: Dry, Normal Color, Warm Assessment and Plan - Assessment and Plan (Free Text) Plan: Abdominal Pain Gastritis Possible GI Bleed Admit to telemetry CT abdomen IV contrast 11/04/17-diffuse gastric wall thickening, worrisome for gastritis. GI, Dr. Augustine, consulted. Help appreciated. Patient ordered for type and cross; with 2 units of PRBC available if she needs. Patient recommended for with 2 large bore IVs: R AC (24 gauge; nursing staff has attempted but she is dehydrated), L EJ placed by the Emergency Room Started on Protonix drip-->Switched Protonix 40mg IV Q12 D/c NS @ 125cc/hr-->switched to D5/12 NS with 20meq KCL 100cc/hr Risk factor: +cocaine, denies NSAID, denies alcohol, +eliquis Monitor H/H 14-->10 (hemodilutional)-->10 stable NPO with ice chips switched to liquids->regular diet for dinner-> NPO after midnight for EGD Lipase: normal Transaminitis Possible acute phase reactant Hepatitis panel: Hepatitis A IgM antibody; Hepatitis B surface antigen, surface antibody, and core IgM antibody are negative, Hepatitis C antibody- reactive abdominal US complete 11/05/17: Mild hepatosplenomegaly, fatty infiltration of liver, no evidence of cholelithiasis/cholecystitis Diabetes Mellitus-poorly controlled A1c: 12.5 Lipid panel: f/u Hypoglycemic protocol Accucheck Q6H RISS-high Start D51/2 NS KCL 20meq Cocaine use Avoid beta blockers Reports last use about 4 days Discussed with psych, there is no withdrawal protocol for cocaine use; recommended for Gabapentin if necessary Patient refused EKG on admission Nausea/Vomiting Zofran 4mg IV Q6H PRN nausea Patient refused EKG on admission Dysuria/Frquency Urine culture (Straight cath) UA: 3+ glucose, 2+ ketones, 1+ blood, 10 RBC, rare bacteria Start Zosyn 3.375 gm IV Q8H (active since 11/04/17) Consider probiotic when patient is transition to liquid diet Anemia bleed vs hemodilutional Received 4 Liters overnight Reticulocyte count, Ferritin Iron studies: Serum Fe 40 (11/04) Iron saturation 12 (11/04) TIBC 330 (11/04) Folate : 15.6 B12: 342 gastric occult blood- not offered in house or [facility] No gross hematochezia on exam negative stool occult blood 11/04 History of Blood clot in the neck Initially it was unclear why patient was using Eliquis given how drowsy and agitated she was in the ED. When patient more hydrated and calm in the afternoon she was able to indicate she was on ELiquis for about one month for "blood clot in the neck" Cartoid duplex r/o clot in neck venous duplex r/o DVT in upper and lower extremities: Upper and lower extremity US were negative for DVT bilaterally, showing normal venous flow and valvular function Order for EKG-->patient refused Lactic acidosis Resolved Had received 4 Liters of fluid overnight Leukocytosis reactive secondary to nausea/vomitting vs symptomatic UTI vs GI bleed? Blood cultures X2 negative for growth urine culture Negative for growth c/w Zosyn 3.375 IV [id number] Prophylactic measures chemical VTE prophylaxis contraindicated secondary to suspected GI bleed Contraindications to SCD until DVT is ruled out: Upper and lower extremity Ultrasounds were negative bilaterally, showing normal venous flow and functional valves initially Protonix drip switched to protonix 40mg IV Q12H Patient vomited x1 today, non-bloody. She had regular diet for dinner, tolerated well. feeling much better. NPO after midnight for EGD tomorrow. <Juanito Pavon H - Last Filed: 11/06/17 09:05> Objective - Vital Signs/Intake and Output Vital Signs (last 24 hours): Temp Pulse Resp BP Pulse Ox 97.4 F L 87 20 111/76 98 11/05/17 23:15 11/06/17 01:00 11/05/17 23:15 11/05/17 23:15 11/05/17 23:15 Intake and Output: 11/06/17 11/06/17 06:59 18:59 Intake Total 500 Balance 500 - Medications Medications: Current Medications Dextrose (Dextrose 50% Inj) 0 ml IV STAT PRN; Protocol PRN Reason: Hypoglycemia Protocol Last Admin: 11/04/17 18:39 Dose: 50 ml Dextrose (Glutose 15) 0 gm PO ONCE PRN; Protocol PRN Reason: Hypoglycemia Protocol Glucagon (Glucagen Diagnostic Kit) 0 mg IM STAT PRN; Protocol PRN Reason: Hypoglycemia Protocol Dextrose (Dextrose 5% In Water 1000 Ml) 1,000 mls @ 0 mls/hr IV .Q0M PRN; Protocol; Per Protocol PRN Reason: Hypoglycemia Protocol Piperacillin Sod/Tazobactam (Sod 3.375 gm/ Sodium Chloride) 100 mls @ 200 mls/ hr IVPB Q6H MARY PRN Reason: Protocol Last Admin: 11/06/17 04:36 Dose: 200 mls/hr Potassium Chloride/Dextrose/Sod Cl (Potassium Chl 20 Meq In D5-1/2ns) 1,000 mls @ 100 mls/hr IV .Q10H MARY Last Admin: 11/06/17 03:15 Dose: 100 mls/hr Insulin Human Regular (Novolin R) 0 unit SC ACHS MARY PRN Reason: Protocol Last Admin: 11/06/17 08:14 Dose: 12 units Ondansetron HCl (Zofran Inj) 4 mg IVP Q6 PRN PRN Reason: Nausea/Vomiting Last Admin: 11/06/17 03:47 Dose: 4 mg Pantoprazole Sodium (Protonix Inj) 40 mg IVP Q12H MARY Last Admin: 11/06/17 02:54 Dose: 40 mg - Labs Labs: 11/06/17 08:45 11/05/17 07:37 PT 9.0 SECONDS (9.7-12.2) L 11/04/17 02:42 INR 0.8 11/04/17 02:42 APTT 28 SECONDS (21-34) 11/04/17 02:42 Attending/Attestation - Attestation I have personally seen and examined this patient.: Yes I have fully participated in the care of the patient.: Yes I have reviewed all pertinent clinical information, including history, physical exam and plan: Yes Notes (Text): Medical attending: Patient was seen and examined by me. Agree with the above note by the resident The patient has been recently using polysubstance abuse and we had a discussion about this. We also made patient aware of the hepatitis C as well. Continue to follow CBC, continue with the IV protonix. The patient was started on a sliding scale insulin as well for high blood sugars. 11/06/17 09:04
[2017-11-05] MEDS ORDERED: (Novolin R) Insulin Human Regular 100 units/ml vial SC ONE (21:39)
[2017-11-06] MEDS: Potassium Ch 20mEq in D5-1/2NS 1,000 ML IV SCH (03:15)
[2017-11-06] MEDS: Piperacillin/Tazobact 3.375 GM in Sodium Chloride 100 ML IVPB SCH ×2 (04:36→11:37)
[2017-11-06] MEDS ORDERED: (Novolin 70/30) NPH/Regular 70/30 Units/ml 10 ml vial SC ONE (08:07)
[2017-11-06] MEDS: (Novolin R) Insulin Human Regular 100 units/ml vial SC SCH ×4 (08:35→22:25)
[2017-11-06 08:54] LABS: HEMOGLOBIN 11.6 g/dL (11.0-16.0); MEAN CELL VOLUME 88.9 fL (81.0-99.0); MEAN CORPUSCULAR HEMOGLOBIN 29.8 pg (27.0-31.0); MEAN CORPUSCULAR HGB CONC 33.5 g/dL (33.0-37.0); MEAN PLATELET VOLUME 9.1 fL (7.2-11.7); RBC 3.91 Mil/uL (3.80-5.20); WHITE BLOOD COUNT 6.3 K/uL (4.8-10.8)
[2017-11-06] MEDS ORDERED: Propofol 10 mg/ml Inj (20 ML) ONE (09:01)
[2017-11-06] MEDS ORDERED: Lactated Ringer's 500 ML IV ONE (09:06)
[2017-11-06] MEDS ORDERED: Midazolam 2 MG/2 ML VIAL ONE (09:13)
[2017-11-06 09:26] LABS: LDL CHOLESTEROL 47 mg/dL (0-129)
--- NOTE | 2017-11-06 09:27 | CP.PCM.PN ---
Subjective - Date & Time of Evaluation Date of Evaluation: 11/06/17 Time of Evaluation: 09:25 - Subjective Subjective: EGD: Ulcerative esophagitis with thick exudates from 30-40cm, biopsies taken and brushing to r/o Janice esophagitis as well Erosive antral gastritis Rec/ Protonix 40mg po BID Check HCV-RNA by Quantitative PCR, Genotype and Fibrosure to assess degree of fibrosis. [place] patient f/u with GI Clinic or [place] [facility] [place] [place] evaluation for HCV if +. Advance diet as tolerated. Objective - Vital Signs/Intake and Output Vital Signs (last 24 hours): Temp Pulse Resp BP Pulse Ox 97.8 F 83 20 113/74 100 11/06/17 09:17 11/06/17 09:17 11/06/17 09:17 11/06/17 09:17 11/06/17 09:17 Intake and Output: 11/06/17 11/06/17 06:59 18:59 Intake Total 500 Balance 500 - Medications Medications: Current Medications Dextrose (Dextrose 50% Inj) 0 ml IV STAT PRN; Protocol PRN Reason: Hypoglycemia Protocol Last Admin: 11/04/17 18:39 Dose: 50 ml Dextrose (Glutose 15) 0 gm PO ONCE PRN; Protocol PRN Reason: Hypoglycemia Protocol Glucagon (Glucagen Diagnostic Kit) 0 mg IM STAT PRN; Protocol PRN Reason: Hypoglycemia Protocol Dextrose (Dextrose 5% In Water 1000 Ml) 1,000 mls @ 0 mls/hr IV .Q0M PRN; Protocol; Per Protocol PRN Reason: Hypoglycemia Protocol Piperacillin Sod/Tazobactam (Sod 3.375 gm/ Sodium Chloride) 100 mls @ 200 mls/ hr IVPB Q6H MARY PRN Reason: Protocol Last Admin: 11/06/17 04:36 Dose: 200 mls/hr Insulin Glargine (Lantus) 10 unit SC QPM MARY Insulin Human Regular (Novolin R) 0 unit SC ACHS MARY PRN Reason: Protocol Last Admin: 11/06/17 08:35 Dose: 12 units Ondansetron HCl (Zofran Inj) 4 mg IVP Q6 PRN PRN Reason: Nausea/Vomiting Last Admin: 11/06/17 03:47 Dose: 4 mg - Labs Labs: 11/06/17 08:45 11/05/17 07:37 PT 9.0 SECONDS (9.7-12.2) L 11/04/17 02:42 INR 0.8 11/04/17 02:42 APTT 28 SECONDS (21-34) 11/04/17 02:42 Assessment and Plan (1) Hematemesis Status: Acute (2) Abdominal pain Status: Acute (3) Substance abuse Status: Acute (4) Abnormal transaminases Status: Acute
[2017-11-06 09:33] LABS: ALB/GLOB RATIO 1.4 (1.0-2.1); ALBUMIN 3.6 g/dL (3.5-5.0); ALT/SGPT 60 U/L (9-52); AST/SGOT 44 U/L (14-36); BILIRUBIN,DIRECT 0.4 mg/dL (0.0-0.4); BLOOD UREA NITROGEN 8 mg/dL (7-17); CALCIUM 8.8 mg/dl (8.6-10.4); GFR AFRICAN-AMERICAN > 60; GFR NON-AFRICAN AMERICAN > 60; HDL CHOLESTEROL 55 mg/dL (30-70)
[2017-11-06] MEDS: Pantoprazole 40 mg EC Tab PO SCH ×2 (10:40→22:39)
--- NOTE | 2017-11-06 14:25 | CP.PCM.PN ---
<Remedios Rodríguez P - Last Filed: 11/06/17 14:38> Subjective - Date & Time of Evaluation Date of Evaluation: 11/06/17 Time of Evaluation: 09:00 - Subjective Subjective: Pt is status post EGD. Tolerating regular diet, reported feeling much better than previously. EGD report ulcerative esophagitis and errosive gastritis at the antrum. Blood glucose have been very elevated. Objective - Vital Signs/Intake and Output Vital Signs (last 24 hours): Temp Pulse Resp BP Pulse Ox 97 F L 88 22 105/76 100 11/06/17 10:04 11/06/17 10:04 11/06/17 10:04 11/06/17 10:04 11/06/17 10:04 Intake and Output: 11/06/17 11/06/17 06:59 18:59 Intake Total 500 Balance 500 - Medications Medications: Current Medications Dextrose (Dextrose 50% Inj) 0 ml IV STAT PRN; Protocol PRN Reason: Hypoglycemia Protocol Last Admin: 11/04/17 18:39 Dose: 50 ml Dextrose (Glutose 15) 0 gm PO ONCE PRN; Protocol PRN Reason: Hypoglycemia Protocol Glucagon (Glucagen Diagnostic Kit) 0 mg IM STAT PRN; Protocol PRN Reason: Hypoglycemia Protocol Dextrose (Dextrose 5% In Water 1000 Ml) 1,000 mls @ 0 mls/hr IV .Q0M PRN; Protocol; Per Protocol PRN Reason: Hypoglycemia Protocol Piperacillin Sod/Tazobactam (Sod 3.375 gm/ Sodium Chloride) 100 mls @ 200 mls/ hr IVPB Q6H MARY PRN Reason: Protocol Last Admin: 11/06/17 11:37 Dose: 200 mls/hr Insulin Aspart (Novolog) [address] [facility] Insulin Glargine (Lantus) 10 unit SC QPM MARY Insulin Glargine (Lantus) 15 unit SC QPM MARY Insulin Human Regular (Novolin R) 0 unit SC ACHS MARY PRN Reason: Protocol Last Admin: 11/06/17 12:23 Dose: Not Given Ondansetron HCl (Zofran Inj) 4 mg IVP Q6 PRN PRN Reason: Nausea/Vomiting Last Admin: 11/06/17 03:47 Dose: 4 mg Pantoprazole Sodium (Protonix Ec Tab) 40 mg PO Q12H MARY Last Admin: 11/06/17 10:40 Dose: 40 mg - Labs Labs: 11/06/17 08:45 11/06/17 08:45 PT 9.0 SECONDS (9.7-12.2) L 11/04/17 02:42 INR 0.8 11/04/17 02:42 APTT 28 SECONDS (21-34) 11/04/17 02:42 - Constitutional Appears: Well, No Acute Distress - Head Exam Head Exam: ATRAUMATIC, NORMOCEPHALIC - Eye Exam Eye Exam: EOMI, Normal appearance - Respiratory Exam Respiratory Exam: Clear to Ausculation Bilateral, NORMAL BREATHING PATTERN. absent: Rales, Rhonchi, Wheezes, Respiratory Distress, Stridor - Cardiovascular Exam Cardiovascular Exam: REGULAR RHYTHM, +S1, +S2 - GI/Abdominal Exam GI & Abdominal Exam: Soft, Tenderness. absent: Guarding, Rigid Additional comments: very mild diffuse tenderness with palpation, less than before. - Extremities Exam Extremities Exam: Normal Inspection. absent: Pedal Edema, Tenderness - Neurological Exam Neurological Exam: Awake, Oriented x3 Neuro motor strength exam: Left Upper Extremity: 5, Right Upper Extremity: 5, Left Lower Extremity: 5, Right Lower Extremity: 5 - Psychiatric Exam Psychiatric exam: Flat Affect - Skin Skin Exam: Dry, Normal Color, Warm Assessment and Plan - Assessment and Plan (Free Text) Plan: Abdominal Pain Gastritis Possible GI Bleed Admit to telemetry CT abdomen IV contrast 11/04/17-diffuse gastric wall thickening, worrisome for gastritis. GI, Dr. Augustine, consulted. Help appreciated. Patient ordered for type and cross; with 2 units of PRBC available if she needs. Patient recommended for with 2 large bore IVs: R AC (24 gauge; nursing staff has attempted but she is dehydrated), L EJ placed by the Emergency Room Protonix 40 PO daily Risk factor: +cocaine, denies NSAID, denies alcohol, +eliquis Monitor H/H 14-->10 (hemodilutional)-->10 stable Pt went for EGD 11/06/17: ulcerative esophagitis and errosive antral gastritis Lipase: normal Transaminitis Possible acute phase reactant Hepatitis panel: Hepatitis A IgM antibody; Hepatitis B surface antigen, surface antibody, and core IgM antibody are negative, Hepatitis C antibody- reactive abdominal US complete 11/05/17: Mild hepatosplenomegaly, fatty infiltration of liver, no evidence of cholelithiasis/cholecystitis Diabetes Mellitus-poorly controlled A1c: 12.5 Lipid panel: f/u Hypoglycemic protocol Accucheck Q6H RISS-high Patient eating by mouth IV fluids stopped. Lantus 15u QHS, novolog 5u ACHS Cocaine use Avoid beta blockers Reports last use about 4 days Discussed with psych, there is no withdrawal protocol for cocaine use; recommended for Gabapentin if necessary Patient refused EKG on admission Nausea/Vomiting Zofran 4mg IV Q6H PRN nausea Patient refused EKG on admission Dysuria/Frquency Urine culture (Straight cath) UA: 3+ glucose, 2+ ketones, 1+ blood, 10 RBC, rare bacteria Start Zosyn 3.375 gm IV Q8H (active since 11/04/17) Consider probiotic when patient is transition to liquid diet Urine culture final-negative-> discontinue Zosyn 11/06/17 Anemia bleed vs hemodilutional Received 4 Liters overnight Reticulocyte count, Ferritin Iron studies: Serum Fe 40 (11/04) Iron saturation 12 (11/04) TIBC 330 (11/04) Folate : 15.6 B12: 342 gastric occult blood- not offered in house or [facility] No gross hematochezia on exam negative stool occult blood 11/04 11/06 Hemoglobin increased to 11.6 History of Blood clot in the neck Initially it was unclear why patient was using Eliquis given how drowsy and agitated she was in the ED. When patient more hydrated and calm in the afternoon she was able to indicate she was on ELiquis for about one month for "blood clot in the neck" Cartoid duplex r/o clot in neck-> was cancelled by department, we are reordering 11/06 venous duplex r/o DVT in upper and lower extremities: Upper and lower extremity US were negative for DVT bilaterally, showing normal venous flow and valvular function Order for EKG-->patient refused Leukocytosis reactive secondary to nausea/vomitting vs symptomatic UTI vs GI bleed? Blood cultures X2 negative for growth urine culture Negative for growth c/w Zosyn 3.375 IV [id number] 11/06- WBC now stable blood and urine cx negative. Prophylactic measures chemical VTE prophylaxis contraindicated secondary to suspected GI bleed Contraindications to SCD until DVT is ruled out: Upper and lower extremity Ultrasounds were negative bilaterally, showing normal venous flow and functional valves initially Protonix drip switched to protonix 40mg IV Q12H Disposition: Likely discharge tomorrow if hgb stays stable and pt tolerating diet. GI, Dr. Guerrero recommends out patient follow up at GI clinic or [facility] [place] for Hepatitis C, and follow up pending labs for STEVE screen, mitochondrial antibody, HCV RNA genotype, and HCV RNA Quantitative PCR. <Juanito Pavon - Last Filed: 11/06/17 18:50> Objective - Vital Signs/Intake and Output Vital Signs (last 24 hours): Temp Pulse Resp BP Pulse Ox 98.6 F 76 20 130/88 99 11/06/17 15:00 11/06/17 15:00 11/06/17 15:00 11/06/17 15:00 11/06/17 15:00 Intake and Output: 11/06/17 11/06/17 06:59 18:59 Intake Total 500 Balance 500 - Medications Medications: Current Medications Dextrose (Dextrose 50% Inj) 0 ml IV STAT PRN; Protocol PRN Reason: Hypoglycemia Protocol Last Admin: 11/04/17 18:39 Dose: 50 ml Dextrose (Glutose 15) 0 gm PO ONCE PRN; Protocol PRN Reason: Hypoglycemia Protocol Glucagon (Glucagen Diagnostic Kit) 0 mg IM STAT PRN; Protocol PRN Reason: Hypoglycemia Protocol Dextrose (Dextrose 5% In Water 1000 Ml) 1,000 mls @ 0 mls/hr IV .Q0M PRN; Protocol; Per Protocol PRN Reason: Hypoglycemia Protocol Insulin Aspart (Novolog) 5 unit SC ACHS MARY Last Admin: 11/06/17 16:59 Dose: 5 unit Insulin Glargine (Lantus) 10 unit SC QPM MARY Insulin Glargine (Lantus) 15 unit SC QPM MARY Insulin Human Regular (Novolin R) 0 unit SC ACHS MARY PRN Reason: Protocol Last Admin: 11/06/17 16:58 Dose: 8 units Ondansetron HCl (Zofran Inj) 4 mg IVP Q6 PRN PRN Reason: Nausea/Vomiting Last Admin: 11/06/17 03:47 Dose: 4 mg Pantoprazole Sodium (Protonix Ec Tab) 40 mg PO Q12H MARY Last Admin: 11/06/17 10:40 Dose: 40 mg - Labs Labs: 11/06/17 08:45 11/06/17 08:45 PT 9.0 SECONDS (9.7-12.2) L 11/04/17 02:42 INR 0.8 11/04/17 02:42 APTT 28 SECONDS (21-34) 11/04/17 02:42 Attending/Attestation - Attestation I have personally seen and examined this patient.: Yes I have fully participated in the care of the patient.: Yes I have reviewed all pertinent clinical information, including history, physical exam and plan: Yes Notes (Text): 11/06/17 18:46 Medical attending: Patient was seen and examined by me. Agree with the above note by the resident. The patient was not in any acute distress, as reported above in the resident note the patient is S/P EGD. Currently Hgb is stable. She is tolerating diet at this time. Her accuchecks have been HIGH and we have added further insulin both with meals and long acting for tonight. Juanito Pavon
--- NOTE | 2017-11-06 15:01 | CARD ---
APPROVED REPORT Date of service: 11/04/2017 EKG Measurement Heart [id number] <Conclusion> Normal sinus rhythm Possible Left atrial enlargement Borderline ECG
[2017-11-06 15:52] VITALS: RESP 20
[2017-11-06] MEDS: (Novolog) Insulin Aspart, Recombinant 100 u/ml 10 ml vial SC SCH ×2 (16:59→22:39)
[2017-11-06] MEDS ORDERED: (Lantus) Insulin Glargine, Recombinant SC SCH ×3 (18:00→22:00)
[2017-11-07 00:06] VITALS: O2SAT 97
[2017-11-07 07:39] VITALS: BP 109/83; TEMP 98.6
[2017-11-07] MEDS ORDERED: Zinc Oxide Topical 30 gm Tube TOP PRN (08:54)
[2017-11-07] MEDS ORDERED: (Lantus) Insulin Glargine, Recombinant SC SCH (09:08)
[2017-11-07] MEDS: (Novolog) Insulin Aspart, Recombinant 100 u/ml 10 ml vial SC SCH ×2 (09:26→13:48)
[2017-11-07] MEDS: (Novolin R) Insulin Human Regular 100 units/ml vial SC SCH ×2 (09:26→13:48)
[2017-11-07] MEDS: Pantoprazole 40 mg EC Tab PO SCH (09:27)
[2017-11-07] MEDS ORDERED: Aluminum Hydroxide/Magnesium Hydroxide Susp (30 mL) PO PRN (12:57)
[2017-11-07 14:14] LABS: BASO % 0.5 % (0.0-2.0); EOS # 0.2 K/uL (0.0-0.7); EOS % 2.3 % (0.0-4.0); LYMPH # 2.7 K/uL (1.0-4.3); LYMPH % 33.8 % (20.0-40.0); MEAN CORPUSCULAR HEMOGLOBIN 29.2 pg (27.0-31.0); MEAN CORPUSCULAR HGB CONC 33.9 g/dL (33.0-37.0); MEAN PLATELET VOLUME 8.3 fL (7.2-11.7); MONO # 0.5 K/uL (0.0-0.8); MONO % 6.6 % (0.0-10.0); NEUT # 4.5 K/uL (1.8-7.0); NEUT % 56.8 % (50.0-75.0); NRBC % 0.1 % (0.0-2.0); RBC 4.66 Mil/uL (3.80-5.20)
[2017-11-07 14:21] LABS: HEMOGLOBIN 13.6 g/dL (11.0-16.0)
[2017-11-07 14:34] LABS: ALB/GLOB RATIO 1.3 (1.0-2.1); ALBUMIN 4.5 g/dL (3.5-5.0); ALT/SGPT 57 U/L (9-52); AST/SGOT 47 U/L (14-36); BLOOD UREA NITROGEN 13 mg/dL (7-17); CALCIUM 10.3 mg/dl (8.6-10.4); GFR AFRICAN-AMERICAN > 60; GFR NON-AFRICAN AMERICAN > 60
--- NOTE | 2017-11-07 16:30 | CP.PCM.PN ---
Subjective - Date & Time of Evaluation Date of Evaluation: 11/07/17 Time of Evaluation: 08:00 - Subjective Subjective: PGY-[address] Pavon Patient was seen and examined at midline. Objective - Vital Signs/Intake and Output Vital Signs (last 24 hours): Temp Pulse Resp BP Pulse Ox 98.6 F 91 H 20 109/83 97 11/07/17 07:00 11/07/17 07:00 11/07/17 07:00 11/07/17 07:00 11/07/17 07:00 Intake and Output: 11/07/17 11/07/17 06:59 18:59 Intake Total 400 Balance 400 - Medications Medications: Current Medications Al Hydrox/Mg Hydrox/Simethicone (Maalox 30 Ml) 30 ml PO BID PRN PRN Reason: Indigestion / Heartburn Last Admin: 11/07/17 13:48 Dose: 30 ml Dextrose (Dextrose 50% Inj) 0 ml IV STAT PRN; Protocol PRN Reason: Hypoglycemia Protocol Last Admin: 11/04/17 18:39 Dose: 50 ml Dextrose (Glutose 15) 0 gm PO ONCE PRN; Protocol PRN Reason: Hypoglycemia Protocol Glucagon (Glucagen Diagnostic Kit) 0 mg IM STAT PRN; Protocol PRN Reason: Hypoglycemia Protocol Insulin Aspart (Novolog) 5 unit SC ACHS [facility] Last Admin: 11/07/17 13:48 Dose: 5 unit Insulin Glargine (Lantus) 15 unit SC HS MARY Insulin Human Regular (Novolin R) 0 unit SC ACHS MARY PRN Reason: Protocol Last Admin: 11/07/17 13:48 Dose: 4 units Ondansetron HCl (Zofran Inj) 4 mg IVP Q6 PRN PRN Reason: Nausea/Vomiting Last Admin: 11/06/17 03:47 Dose: 4 mg Pantoprazole Sodium (Protonix Ec Tab) 40 mg PO Q12H MARY Last Admin: 11/07/17 09:27 Dose: 40 mg Petrolatum (Desitin Original) 0 gm TOP 5XD PRN PRN Reason: Itching / Pruritus - Labs Labs: 11/07/17 13:57 11/07/17 13:57 PT 9.0 SECONDS (9.7-12.2) L 11/04/17 02:42 INR 0.8 11/04/17 02:42 APTT 28 SECONDS (21-34) 11/04/17 02:42
--- NOTE | 2017-11-07 16:41 | CP.PCM.DIS ---
<Remedios Rodríguez P - Last Filed: 11/07/17 16:41> Provider - Provider Date of Admission: 11/04/17 08:28 Attending physician: Juanito Pavon DO Time Spent in preparation of Discharge (in minutes): 45 Diagnosis - Discharge Diagnosis (1) Substance abuse Status: Acute (2) Upper GI bleed Status: Acute Hospital Course - Lab Results Lab Results: Micro Results 11/04/17 09:55 Blood Blood Culture - Preliminary NO GROWTH AFTER 3 DAYS 11/04/17 09:55 Blood Blood Culture - Preliminary NO GROWTH AFTER 3 DAYS 11/04/17 09:41 Urine,Catheterized Urine Culture - Final No Growth (<1,000 CFU/ML) Most Recent Lab Values WBC 8.0 K/uL (4.8-10.8) 11/07/17 13:57 RBC 4.66 Mil/uL (3.80-5.20) 11/07/17 13:57 Hgb 13.6 g/dL (11.0-16.0) D 11/07/17 13:57 Hct 40.1 % (34.0-47.0) 11/07/17 13:57 MCV 86.0 fL (81.0-99.0) D 11/07/17 13:57 MCH 29.2 pg (27.0-31.0) 11/07/17 13:57 MCHC 33.9 g/dL (33.0-37.0) 11/07/17 13:57 RDW 14.0 % (11.5-14.5) 11/07/17 13:57 Plt Count 345 K/uL (130-400) 11/07/17 13:57 MPV 8.3 fL (7.2-11.7) 11/07/17 13:57 Neut % (Auto) 56.8 % (50.0-75.0) 11/07/17 13:57 Lymph % (Auto) 33.8 % (20.0-40.0) 11/07/17 13:57 Richardson % (Auto) 6.6 % (0.0-10.0) 11/07/17 13:57 Eos % (Auto) 2.3 % (0.0-4.0) 11/07/17 13:57 Baso % (Auto) 0.5 % (0.0-2.0) 11/07/17 13:57 Neut # (Auto) 4.5 K/uL (1.8-7.0) 11/07/17 13:57 Lymph # (Auto) 2.7 K/uL (1.0-4.3) 11/07/17 13:57 Richardson # (Auto) 0.5 K/uL (0.0-0.8) 11/07/17 13:57 Eos # (Auto) 0.2 K/uL (0.0-0.7) 11/07/17 13:57 Baso # (Auto) 0.0 K/uL (0.0-0.2) 11/07/17 13:57 Differential Comment 11/04/17 02:29 Retic Count 1.1 % (0.5-1.5) 11/04/17 10:54 PT 9.0 SECONDS (9.7-12.2) L 11/04/17 02:42 INR 0.8 11/04/17 02:42 APTT 28 SECONDS (21-34) 11/04/17 02:42 pO2 52 mm/Hg (30-55) 11/04/17 08:24 VBG pH 7.40 (7.32-7.43) 11/04/17 08:24 VBG pCO2 46 mmHg (40-60) 11/04/17 08:24 VBG HCO3 27.0 mmol/L 11/04/17 08:24 VBG Total CO2 29.9 mmol/L (22-28) H 11/04/17 08:24 VBG O2 Sat (Calc) 89.5 % (40-65) H 11/04/17 08:24 VBG Base Excess 3.0 mmol/L (0.0-2.0) H 11/04/17 08:24 VBG Potassium 2.6 mmol/L (3.6-5.2) L 11/04/17 08:24 Sodium 144.0 mmol/l (132-148) 11/04/17 08:24 Chloride 110.0 mmol/L (98-107) H 11/04/17 08:24 Glucose 32 mg/dl (65-105) L* D 11/04/17 08:24 Lactate 1.5 mmol/L (0.7-2.1) 11/04/17 08:24 Crit Value Called To Navjot villalpando 11/04/17 08:24 Crit Value Called By Sean espinosa 11/04/17 08:24 Crit Value Read Back Y 11/04/17 08:24 Blood Gas Notified Time 831 11/04/17 08:24 Sodium 140 mmol/L (132-148) 11/07/17 13:57 Potassium 4.0 mmol/L (3.6-5.2) 11/07/17 13:57 Chloride 97 mmol/L (98-107) L 11/07/17 13:57 Carbon Dioxide 24 mmol/L (22-30) 11/07/17 13:57 Anion Gap 23 (10-20) H 11/07/17 13:57 BUN 13 mg/dL (7-17) 11/07/17 13:57 Creatinine 0.6 mg/dL (0.7-1.2) L 11/07/17 13:57 Est GFR ( Amer) > 60 11/07/17 13:57 Est GFR (Non-Af Amer) > 60 11/07/17 13:57 POC Glucose (mg/dL) 234 mg/dL (65-110) H 11/07/17 11:25 Random Glucose 119 mg/dL (65-105) H 11/07/17 13:57 Hemoglobin A1c 12.5 % (4.2-6.5) H 11/04/17 12:18 Lactic Acid 1.4 mmol/L (0.7-2.1) 11/04/17 06:19 Calcium 10.3 mg/dl (8.6-10.4) 11/07/17 13:57 Phosphorus 2.8 mg/dL (2.5-4.5) 11/05/17 07:37 Magnesium 1.9 mg/dL (1.6-2.3) 11/05/17 07:37 Iron 40 ug/dL (37-170) 11/04/17 12:18 TIBC 330 ug/dL (250-450) 11/04/17 12:18 % Saturation 12 (20-55) L 11/04/17 12:18 Ferritin 69.2 ng/mL 11/04/17 12:18 Total Bilirubin 0.4 mg/dL (0.2-1.3) 11/07/17 13:57 Direct Bilirubin 0.4 mg/dL (0.0-0.4) 11/06/17 08:45 AST 47 U/L (14-36) H 11/07/17 13:57 ALT 57 U/L (9-52) H 11/07/17 13:57 Alkaline Phosphatase 123 U/L (38-126) 11/07/17 13:57 Ammonia 10 umol/L (9-33) 11/04/17 14:06 Total Protein 8.0 g/dL (6.3-8.3) 11/07/17 13:57 Albumin 4.5 g/dL (3.5-5.0) 11/07/17 13:57 Globulin 3.4 gm/dL (2.2-3.9) 11/07/17 13:57 Albumin/Globulin Ratio 1.3 (1.0-2.1) 11/07/17 13:57 Triglycerides 129 mg/dL (0-149) 11/06/17 08:45 Cholesterol 133 mg/dL (0-199) 11/06/17 08:45 LDL Cholesterol Direct 47 mg/dL (0-129) 11/06/17 08:45 HDL Cholesterol 55 mg/dL (30-70) 11/06/17 08:45 Lipase 38 U/L (23-300) 11/04/17 02:29 Vitamin B12 342 pg/mL (239-931) 11/04/17 12:18 Folate 15.6 ng/mL 11/04/17 12:18 Venous Blood Potassium 2.6 mmol/L (3.6-5.2) L 11/04/17 08:24 Urine Color Straw (YELLOW) 11/04/17 03:08 Urine Clarity Clear (Clear) 11/04/17 03:08 Urine pH 5.0 (5.0-8.0) 11/04/17 03:08 Ur Specific [place] 1.023 (1.003-1.030) 11/04/17 03:08 Urine Protein Negative mg/dL (NEGATIVE) 11/04/17 03:08 Urine Glucose (UA) 3+ mg/dL (Normal) H 11/04/17 03:08 Urine Ketones 2+ mg/dL (NEGATIVE) H 11/04/17 03:08 Urine Blood 1+ (NEGATIVE) H 11/04/17 03:08 Urine Nitrate Negative (NEGATIVE) 11/04/17 03:08 Urine Bilirubin Negative (NEGATIVE) 11/04/17 03:08 Urine Urobilinogen Normal mg/dL (0.2-1.0) 11/04/17 03:08 Ur Leukocyte Esterase Neg [place]/uL (Negative) 11/04/17 03:08 Urine WBC (Auto) 4 /hpf (0-5) 11/04/17 03:08 Urine RBC (Auto) 10 /hpf (0-3) H 11/04/17 03:08 Ur Squamous Epith Cells < 1 /hpf (0-5) 11/04/17 03:08 Urine Bacteria Rare (<OCC) 11/04/17 03:08 Urine HCG, Qual Negative (NEGATIVE) 11/06/17 08:50 Stool Occult Blood Negative (NEGATIVE) 11/04/17 04:22 Urine Opiates Screen Negative (NEGATIVE) 11/04/17 03:08 Urine Methadone Screen Negative (NEGATIVE) 11/04/17 03:08 Ur Barbiturates Screen Negative (NEGATIVE) 11/04/17 03:08 Ur Phencyclidine Scrn Negative (NEGATIVE) 11/04/17 03:08 Ur Amphetamines Screen Negative (NEGATIVE) 11/04/17 03:08 U Benzodiazepines Scrn Negative (NEGATIVE) 11/04/17 03:08 U Oth Cocaine Metabols Positive (NEGATIVE) H 11/04/17 03:08 U Cannabinoids Screen Positive (NEGATIVE) H 11/04/17 03:08 Alcohol, Quantitative < 10 mg/dl (0-10) 11/04/17 02:29 STEVE Nuclear Membr Pat Negative (Negative) 11/05/17 07:37 Anti-Mitochondrial Ab Negative (Negative) 11/05/17 07:30 Hepatitis A IgM Ab Negative (NEGATIVE) 11/04/17 12:18 Hep Bs Antigen Negative (NEGATIVE) 11/04/17 12:18 Hep Bs Antibody Negative (NEGATIVE) 11/04/17 23:59 Hep B Core IgM Ab Negative (NEGATIVE) 11/04/17 12:18 Hepatitis C Antibody Reactive (NEGATIVE) 11/04/17 12:18 HIV 1&2 Antibody Screen Negative (NEGATIVE) 11/04/17 12:18 Blood Type A POSITIVE 11/04/17 02:56 Blood Type Confirm A POSITIVE 11/04/17 02:56 Antibody Screen Negative 11/04/17 02:56 - Hospital Course Hospital Course: 31 year old female with PMHx of DM, DKA, anemia, blood clot and cocaine use disorder presents to the ED for severe epigastric abdominal pain and vomiting for the past 2 days. Patient states there was blood in her vomitus and "lost count" of the number of episodes. Patient also admits to body aches, dysuria and urinary frequency. Denies diarrhea. Patient states she last used cocaine 2 days ago, snorted. Last took home meds of Levamir and iron 2 days ago. Unable to obtain further history as patient is difficult to arouse. Hospital course: Patient underwent EGD showed esophagitis and ulcerative gastritis. Worked up by GI who decided she would follow up out patient for lab work results inflammatory disease and treatment of Hep C. We have informed her that she does have Hepatitis C. Patient must follow up with Primary care physician at Health system who will decide if patient should continue Xarato. There was Extremity dopplers obtained and showed negative for DVT in upper and lower extremities. While hospitalized, patient's case was complicated by cocaine and THC use. We' ve explained the risks of continued cocaine use. While here, she's had uncontrolled blood sugars, which have required insulin. Patient will be discharged with long acting insuling script and insulin with meals. Discharge Exam - Head Exam Head Exam: ATRAUMATIC, NORMOCEPHALIC - Eye Exam Eye Exam: EOMI, Normal appearance - ENT Exam ENT Exam: Mucous Membranes Moist - Neck Exam Neck exam: Full Rom - Respiratory Exam Respiratory Exam: NORMAL BREATHING PATTERN, UNREMARKABLE. absent: Rales, Rhonchi, Wheezes - Cardiovascular Exam Cardiovascular Exam: REGULAR RHYTHM, +S1, +S2 - GI/Abdominal Exam GI & Abdominal Exam: Normal Bowel Sounds, Soft. absent: Distended, Guarding, Rebound, Tenderness - Neurological Exam Neurological exam: Alert, Normal Gait, Oriented x3 - Psychiatric Exam Psychiatric exam: Flat Affect - Skin Skin Exam: Dry, Normal Color, Warm Discharge Plan - Discharge Medications Prescriptions: Insulin Aspart, Recombinant [Novolog] 3 unit SQ TID #1 vial Insulin Detemir [Levemir] 10 unit SC HS #1 vial - Follow Up Plan Condition: STABLE Disposition: HOME/ ROUTINE Instructions: Insulin Detemir, Diabetes Exchange Diet, Low Cholesterol, Saturated Fat, and Trans Fat Diet , Carbohydrate Counting Diet, Gastrointestinal Bleeding (DC), Upper GI Endoscopy (DC), Insulin Aspart Additional Instructions: Patient must follow up with Primary care physician at Health system who will decide if patient should continue Eliquis. If you do not have a primary care physician. you may follow up with the [facility] [phone]: call to make an appointment. You will need a GI referral from your primary care physician to follow up on Hepatitis C lab work and treatment. You are recommended to avoid blood thinners in light of recent GI bleed until you see your primary care physician. You will receive 2 prescriptions for insulin: Levemir 10 units SC at bedtime daily Novolog 3 units SC three times per day with food. Please take as directed. Please stop cocaine use. Return to emergency room if symptoms are to worsen. <Juanito Pavon - Last Filed: 11/07/17 18:28> Provider - Provider Date of Admission: 11/04/17 08:28 Attending physician: Juanito Pavon, Hospital Course - Lab Results Lab Results: Micro Results 11/04/17 09:55 Blood Blood Culture - Preliminary NO GROWTH AFTER 3 DAYS 11/04/17 09:55 Blood Blood Culture - Preliminary NO GROWTH AFTER 3 DAYS 11/04/17 09:41 Urine,Catheterized Urine Culture - Final No Growth (<1,000 CFU/ML) Most Recent Lab Values WBC 8.0 K/uL (4.8-10.8) 11/07/17 13:57 RBC 4.66 Mil/uL (3.80-5.20) 11/07/17 13:57 Hgb 13.6 g/dL (11.0-16.0) D 11/07/17 13:57 Hct 40.1 % (34.0-47.0) 11/07/17 13:57 MCV 86.0 fL (81.0-99.0) D 11/07/17 13:57 MCH 29.2 pg (27.0-31.0) 11/07/17 13:57 MCHC 33.9 g/dL (33.0-37.0) 11/07/17 13:57 RDW 14.0 % (11.5-14.5) 11/07/17 13:57 Plt Count 345 K/uL (130-400) 11/07/17 13:57 MPV 8.3 fL (7.2-11.7) 11/07/17 13:57 Neut % (Auto) 56.8 % (50.0-75.0) 11/07/17 13:57 Lymph % (Auto) 33.8 % (20.0-40.0) 11/07/17 13:57 Richardson % (Auto) 6.6 % (0.0-10.0) 11/07/17 13:57 Eos % (Auto) 2.3 % (0.0-4.0) 11/07/17 13:57 Baso % (Auto) 0.5 % (0.0-2.0) 11/07/17 13:57 Neut # (Auto) 4.5 K/uL (1.8-7.0) 11/07/17 13:57 Lymph # (Auto) 2.7 K/uL (1.0-4.3) 11/07/17 13:57 Richardson # (Auto) 0.5 K/uL (0.0-0.8) 11/07/17 13:57 Eos # (Auto) 0.2 K/uL (0.0-0.7) 11/07/17 13:57 Baso # (Auto) 0.0 K/uL (0.0-0.2) 11/07/17 13:57 Differential Comment 11/04/17 02:29 Retic Count 1.1 % (0.5-1.5) 11/04/17 10:54 PT 9.0 SECONDS (9.7-12.2) L 11/04/17 02:42 INR 0.8 11/04/17 02:42 APTT 28 SECONDS (21-34) 11/04/17 02:42 pO2 52 mm/Hg (30-55) 11/04/17 08:24 VBG pH 7.40 (7.32-7.43) 11/04/17 08:24 VBG pCO2 46 mmHg (40-60) 11/04/17 08:24 VBG HCO3 27.0 mmol/L 11/04/17 08:24 VBG Total CO2 29.9 mmol/L (22-28) H 11/04/17 08:24 VBG O2 Sat (Calc) 89.5 % (40-65) H 11/04/17 08:24 VBG Base Excess 3.0 mmol/L (0.0-2.0) H 11/04/17 08:24 VBG Potassium 2.6 mmol/L (3.6-5.2) L 11/04/17 08:24 Sodium 144.0 mmol/l (132-148) 11/04/17 08:24 Chloride 110.0 mmol/L (98-107) H 11/04/17 08:24 Glucose 32 mg/dl (65-105) L* D 11/04/17 08:24 Lactate 1.5 mmol/L (0.7-2.1) 11/04/17 08:24 Crit Value Called To Navjot villalpando 11/04/17 08:24 Crit Value Called By Sean espinosa 11/04/17 08:24 Crit Value Read Back Y 11/04/17 08:24 Blood Gas Notified Time 831 11/04/17 08:24 Sodium 140 mmol/L (132-148) 11/07/17 13:57 Potassium 4.0 mmol/L (3.6-5.2) 11/07/17 13:57 Chloride 97 mmol/L (98-107) L 11/07/17 13:57 Carbon Dioxide 24 mmol/L (22-30) 11/07/17 13:57 Anion Gap 23 (10-20) H 11/07/17 13:57 BUN 13 mg/dL (7-17) 11/07/17 13:57 Creatinine 0.6 mg/dL (0.7-1.2) L 11/07/17 13:57 Est GFR ( Amer) > 60 11/07/17 13:57 Est GFR (Non-Af Amer) > 60 11/07/17 13:57 POC Glucose (mg/dL) 234 mg/dL (65-110) H 11/07/17 11:25 Random Glucose 119 mg/dL (65-105) H 11/07/17 13:57 Hemoglobin A1c 12.5 % (4.2-6.5) H 11/04/17 12:18 Lactic Acid 1.4 mmol/L (0.7-2.1) 11/04/17 06:19 Calcium 10.3 mg/dl (8.6-10.4) 11/07/17 13:57 Phosphorus 2.8 mg/dL (2.5-4.5) 11/05/17 07:37 Magnesium 1.9 mg/dL (1.6-2.3) 11/05/17 07:37 Iron 40 ug/dL (37-170) 11/04/17 12:18 TIBC 330 ug/dL (250-450) 11/04/17 12:18 % Saturation 12 (20-55) L 11/04/17 12:18 Ferritin 69.2 ng/mL 11/04/17 12:18 Total Bilirubin 0.4 mg/dL (0.2-1.3) 11/07/17 13:57 Direct Bilirubin 0.4 mg/dL (0.0-0.4) 11/06/17 08:45 AST 47 U/L (14-36) H 11/07/17 13:57 ALT 57 U/L (9-52) H 11/07/17 13:57 Alkaline Phosphatase 123 U/L (38-126) 11/07/17 13:57 Ammonia 10 umol/L (9-33) 11/04/17 14:06 Total Protein 8.0 g/dL (6.3-8.3) 11/07/17 13:57 Albumin 4.5 g/dL (3.5-5.0) 11/07/17 13:57 Globulin 3.4 gm/dL (2.2-3.9) 11/07/17 13:57 Albumin/Globulin Ratio 1.3 (1.0-2.1) 11/07/17 13:57 Triglycerides 129 mg/dL (0-149) 11/06/17 08:45 Cholesterol 133 mg/dL (0-199) 11/06/17 08:45 LDL Cholesterol Direct 47 mg/dL (0-129) 11/06/17 08:45 HDL Cholesterol 55 mg/dL (30-70) 11/06/17 08:45 Lipase 38 U/L (23-300) 11/04/17 02:29 Vitamin B12 342 pg/mL (239-931) 11/04/17 12:18 Folate 15.6 ng/mL 11/04/17 12:18 Venous Blood Potassium 2.6 mmol/L (3.6-5.2) L 11/04/17 08:24 Urine Color Straw (YELLOW) 11/04/17 03:08 Urine Clarity Clear (Clear) 11/04/17 03:08 Urine pH 5.0 (5.0-8.0) 11/04/17 03:08 Ur Specific [place] 1.023 (1.003-1.030) 11/04/17 03:08 Urine Protein Negative mg/dL (NEGATIVE) 11/04/17 03:08 Urine Glucose (UA) 3+ mg/dL (Normal) H 11/04/17 03:08 Urine Ketones 2+ mg/dL (NEGATIVE) H 11/04/17 03:08 Urine Blood 1+ (NEGATIVE) H 11/04/17 03:08 Urine Nitrate Negative (NEGATIVE) 11/04/17 03:08 Urine Bilirubin Negative (NEGATIVE) 11/04/17 03:08 Urine Urobilinogen Normal mg/dL (0.2-1.0) 11/04/17 03:08 Ur Leukocyte Esterase Neg [place]/uL (Negative) 11/04/17 03:08 Urine WBC (Auto) 4 /hpf (0-5) 11/04/17 03:08 Urine RBC (Auto) 10 /hpf (0-3) H 11/04/17 03:08 Ur Squamous Epith Cells < 1 /hpf (0-5) 11/04/17 03:08 Urine Bacteria Rare (<OCC) 11/04/17 03:08 Urine HCG, Qual Negative (NEGATIVE) 11/06/17 08:50 Stool Occult Blood Negative (NEGATIVE) 11/04/17 04:22 Urine Opiates Screen Negative (NEGATIVE) 11/04/17 03:08 Urine Methadone Screen Negative (NEGATIVE) 11/04/17 03:08 Ur Barbiturates Screen Negative (NEGATIVE) 11/04/17 03:08 Ur Phencyclidine Scrn Negative (NEGATIVE) 11/04/17 03:08 Ur Amphetamines Screen Negative (NEGATIVE) 11/04/17 03:08 U Benzodiazepines Scrn Negative (NEGATIVE) 11/04/17 03:08 U Oth Cocaine Metabols Positive (NEGATIVE) H 11/04/17 03:08 U Cannabinoids Screen Positive (NEGATIVE) H 11/04/17 03:08 Alcohol, Quantitative < 10 mg/dl (0-10) 11/04/17 02:29 STEVE Nuclear Membr Pat Negative (Negative) 11/05/17 07:37 Anti-Mitochondrial Ab Negative (Negative) 11/05/17 07:30 Hepatitis A IgM Ab Negative (NEGATIVE) 11/04/17 12:18 Hep Bs Antigen Negative (NEGATIVE) 11/04/17 12:18 Hep Bs Antibody Negative (NEGATIVE) 11/04/17 23:59 Hep B Core IgM Ab Negative (NEGATIVE) 11/04/17 12:18 Hepatitis C Antibody Reactive (NEGATIVE) 11/04/17 12:18 HIV 1&2 Antibody Screen Negative (NEGATIVE) 11/04/17 12:18 Blood Type A POSITIVE 11/04/17 02:56 Blood Type Confirm A POSITIVE 11/04/17 02:56 Antibody Screen Negative 11/04/17 02:56 Attending/Attestation - Attestation I have personally seen and examined this patient.: Yes I have fully participated in the care of the patient.: Yes I have reviewed all pertinent clinical information, including history, physical exam and plan: Yes Notes (Text): Medical attending: Patient was seen and examined by me. Agree with the above note by the resident The patient was refusing the carotid dopplers repeatedly and so we will forgoe this. Currently the Hgb is stable. As mentioned previously the patient has been using cocaine, we discussed with her the dangers of using cocaine. Furthermore we have made her aware of the hepatitis C. She was previously on anticoagulation for an unclear reason when she came to this hospital. Because of the recent GI bleeding, we explained that she needs to avoid this medication until she can follow up with the health providers who provided it to her in the first place. Juanito Pavon
[2017-11-07 22:58] VITALS: PULSE 115
== END 2017-11-07 17:49 | disposition home or self-care (01) | DRG 381 ==
LOC: C.ER 01:43 → C.9E 08:28 → C.6T 09:39
PROVIDERS: ADMIT Hospitalist; ATTEND Hospitalist
PROC: 0DB68ZX Excision of Stomach, Via Natural or Artificial Opening Endoscopic, Diagnostic (ICD-10-PCS; 2017-11-06)
PROC: 0DD38ZX Extraction of Lower Esophagus, Via Natural or Artificial Opening Endoscopic, Diagnostic (ICD-10-PCS; principal; 2017-11-06 09:18)
DX: K22.10 Ulcer of esophagus without bleeding (principal); B37.81 Candidal esophagitis; E87.2 Acidosis; K92.0 Hematemesis; K29.60 Other gastritis without bleeding; E86.0 Dehydration; F12.90 Cannabis use, unspecified, uncomplicated; E10.649 Type 1 diabetes mellitus with hypoglycemia without coma; D72.829 Elevated white blood cell count, unspecified; B19.20 Unspecified viral hepatitis C without hepatic coma; D64.9 Anemia, unspecified; F14.90 Cocaine use, unspecified, uncomplicated; F91.9 Conduct disorder, unspecified; F17.210 Nicotine dependence, cigarettes, uncomplicated; Z79.4 Long term (current) use of insulin

== ENCOUNTER 2017-12-04 06:32 | Emergency (ER) | payer MEDICAID ==
[2017-12-04 06:42] VITALS: O2SAT 99
--- NOTE | 2017-12-04 07:24 | C.PDOC ---
History Of Present Illness 31 year old female patient with hx of diabetes and blood clot presents to the ER with c/o leg pain. Associated symptoms includes leg discoloration, burning, itching, numbness and swelling. Patient reports she has had these symptoms for x4 days. Patient notes she walked more than usual last week. Patient denies fever, chills, change in sensation and chest pain. Time Seen by Provider: 12/04/17 06:58 Chief Complaint (Nursing): Lower Extremity Problem/Injury History Per: Patient History/Exam Limitations: no limitations Onset/Duration Of Symptoms: Days (x4 ) Past Medical History Reviewed: Historical Data, Nursing Documentation, Vital Signs Vital Signs: Last Vital Signs Temp 98.9 F 12/04/17 09:35 Pulse 78 12/04/17 09:35 Resp 16 12/04/17 09:35 BP 98/69 L 12/04/17 09:35 Pulse Ox 99 12/06/17 16:38 - Medical History PMH: Anxiety, Diabetes - [facility] (11/04/17) EXCISION OF STOMACH, ENDO, DIAGN (11/04/17) Family History: States: Unknown Family Hx - Social History Hx Alcohol Use: No Hx Substance Use: Yes - Immunization History Hx Tetanus Toxoid Vaccination: Yes Hx Influenza Vaccination: Yes Hx Pneumococcal Vaccination: Yes Review Of Systems Constitutional: Negative for: Fever, Chills Cardiovascular: Negative for: Chest Pain Musculoskeletal: Positive for: Leg Pain (b/l leg pain, burning, itchiness and swelling) Neurological: Positive for: Numbness (in toes). Negative for: Other (change in sensation) Physical Exam - Physical Exam Appears: No Acute Distress Skin: Normal Color, Warm, Dry Head: Atraumatic, Normacephalic Eye(s): bilateral: PERRL, EOMI Oral Mucosa: Moist Neck: Supple, Other (fullness to anterior neck) Chest: No Tenderness Cardiovascular: Rhythm Regular, No Murmur Respiratory: Normal Breath Sounds, No Rales, No Rhonchi, No Wheezing Gastrointestinal/Abdominal: Soft, No Tenderness, No Distention, No Guarding Back: No CVA Tenderness Extremity: Normal ROM (x4), No Pedal Edema, Calf Tenderness (b/l), Capillary Refill (<2 sec), No Deformity, Other (small mildly erythematous patch to dorsum both feet, no warmth) Pulses: Left Dorsalis Pedis: Normal, Right Dorsalis Pedis: Normal Neurological/Psych: Oriented x3, Normal Speech, Normal Motor, Normal Sensation, No Other (gross focal deficit) Gait: Steady ED Course And Treatment O2 Sat by Pulse Oximetry: 99 (RA) Pulse Ox Interpretation: Normal Medical Decision Making Medical Decision Making: Impression: Diabetic neuropathy Plans: -- Glucose, POC routine -- Urine test -- Venous Duplex scan Reassess: Patient is resting comfortably. Patient is assured and instructed to f /u with commercial singer/specialist to evaluate her thyroid gland in her neck,( appears full), and for her diabetes. . Patient is also instructed to f/u with shelving supervisor to better control her diabetes. 0957 Doppler neg bilaterally. pt now sts dorsum of feet feel warm, on re-exam , they do. will d/c with keflex for prophylactic tx and endo/pmd and podiatry f /u Disposition Counseled Patient/Family Regarding: Studies Performed, Diagnosis, Need For Followup, Rx Given - Disposition Referrals: Podiatry Clinic [Outside] [facility] [Outside] Disposition: HOME/ ROUTINE Disposition Time: 09:58 Condition: GOOD Additional Instructions: Please call your insurance company to find an new primary care doctor and make soonest appointment. Also recommended that you go to see an commercial singer to help you with better diabetes control, referral to a shelving supervisor and for evaluation of your thyroid. Take antibiotics as prescribed and make a follow up appointment with podiatry either here at [facility] or in [place]. Prescriptions: Cephalexin [cephalexin] 500 mg PO Q6 #28 cap Instructions: Diabetic Neuropathy (DC) Forms: [facility] ([place]), General Discharge Instructions - Clinical Impression Clinical Impression: Diabetic neuropathy associated with type 1 diabetes mellitus - PA / GUT SNATCHER / Resident Statement / has reviewed & agrees with the documentation as recorded. - Scribe Statement The provider has reviewed the documentation as recorded by the Regina Whitaker Do All medical record entries made by the Scribduran were at my direction and personally dictated by me. I have reviewed the chart and agree that the record accurately reflects my personal performance of the history, physical exam, medical decision making, and the department course for this patient. I have also personally directed, reviewed, and agree with the discharge instructions and disposition.
[2017-12-04 09:36] VITALS: BP 98/69; PULSE 78; RESP 16; TEMP 98.9
--- NOTE | 2017-12-04 12:23 | VASCLAB ---
Date of service: 12/04/2017 PROCEDURE: Lower Extremity Venous Duplex Exam. HISTORY: bilateral calf tenderness, remote hx dvt PRIORS: None. TECHNIQUE: Bilateral common femoral, femoral, popliteal and posterior tibial, peroneal and great saphenous veins were evaluated. Flow was assessed with color Doppler, compressibility, assessment of phasic flow and augmentation response. Report prepared by Carlos Cerrato, BS, RVT FINDINGS: RIGHT: 1. Common Femoral Vein: 1.1. Compressibility - Fully compressible: Thrombus - None : Flow - Phasic: Augmentation -Normal: Reflux - None. 2. Femoral Vein: 2.1. Compressibility - Fully compressible: Thrombus - None : Flow - Phasic: Augmentation -Normal: Reflux - None. 3. Popliteal Vein: 3.1. Compressibility - Fully compressible: Thrombus - None : Flow - Phasic: Augmentation -Normal: Reflux - None. 4. Posterior Tibial Vein: 4.1. Compressibility - Fully compressible: Thrombus - None: Flow - Phasic: Augmentation -Normal: Reflux - None. 5. Peroneal Vein: 5.1. Compressibility - Fully compressible: Thrombus - None: Flow - Phasic: Augmentation -Normal: Reflux - None. 6. Great Saphenous Vein: 6.1. Compressibility - Fully compressible: Thrombus - None: Flow - Phasic: Augmentation - Normal: Reflux - None. LEFT: 1. Common Femoral Vein: 1.1. Compressibility - Fully compressible: Thrombus - None: Flow - Phasic: Augmentation -Normal: Reflux - None. 2. Femoral Vein: 2.1. Compressibility - Fully compressible: Thrombus - None: Flow - Phasic: Augmentation -Normal: Reflux - None. 3. Popliteal Vein: 3.1. Compressibility - Fully compressible: Thrombus - None : Flow - Phasic: Augmentation -Normal: Reflux - None. 4. Posterior Tibial Vein: 4.1. Compressibility - Fully compressible: Thrombus - None: Flow - Phasic: Augmentation -Normal: Reflux - None. 5. Peroneal Vein: 5.1. Compressibility - Fully compressible: Thrombus - None: Flow - Phasic: Augmentation -Normal: Reflux - None. 6. Great Saphenous Vein: 6.1. Compressibility - Fully compressible: Thrombus - None: Flow - Phasic: Augmentation - Normal: Reflux - None. OTHER FINDINGS: Right: None significant. Left: None significant. IMPRESSION: Right: No evidence of deep or superficial vein thrombosis of the right lower extremity. Normal valve function noted of the right side. Left: No evidence of deep or superficial vein thrombosis of the left lower extremity. Normal valve function noted of the left side.
== END 2017-12-04 10:22 | disposition home or self-care (01) ==
LOC: C.ER 06:32
DX: E10.40 Type 1 diabetes mellitus with diabetic neuropathy, unspecified (principal)

== ENCOUNTER 2018-07-19 08:40 | Emergency (ER) | payer MEDICAID ==
[2018-07-19 09:06] VITALS: RESP 18
[2018-07-19 09:56] LABS: BASO # 0.1 K/uL (0.0-0.2); BASO % 1.4 % (0.0-2.0); EOS # 0.1 K/uL (0.0-0.7); EOS % 1.5 % (0.0-4.0); LYMPH # 1.8 K/uL (1.0-4.3); LYMPH % 28.8 % (20.0-40.0); MEAN CORPUSCULAR HEMOGLOBIN 29.1 pg (27.0-31.0); MEAN CORPUSCULAR HGB CONC 32.7 g/dL (33.0-37.0); MEAN PLATELET VOLUME 9.3 fL (7.2-11.7); MONO # 0.4 K/uL (0.0-0.8); MONO % 6.4 % (0.0-10.0); NEUT # 3.9 K/uL (1.8-7.0); NEUT % 61.9 % (50.0-75.0); RBC 3.93 Mil/uL (3.80-5.20); RED CELL DISTRIBUTION WIDTH 15.6 % (11.5-14.5); WHITE BLOOD COUNT 6.3 K/uL (4.8-10.8)
[2018-07-19 10:00] LABS: HEMOGLOBIN 11.4 g/dL (11.0-16.0); MEAN CELL VOLUME 88.9 fL (81.0-99.0)
[2018-07-19 10:04] LABS: HCG,QUALITATIVE URINE NEGATIVE (NEGATIVE)
[2018-07-19 10:07] LABS: VENOUS BLOOD GAS BASE EXCESS -1.9 mmol/L (0.0-2.0); VENOUS BLOOD GAS PCO2 46 mmHg (40-60); VENOUS BLOOD GAS PO2 47 mm/Hg (30-55); VENOUS BLOOD PH 7.33 (7.32-7.43)
[2018-07-19 10:08] LABS: SQUAMOUS EPITHIAL 1 /hpf (0-5); URINE BILIRUBIN NEGATIVE (NEGATIVE); URINE BLOOD NEGATIVE (NEGATIVE); URINE CLARITY Clear (Clear); URINE COLOR Straw (YELLOW); URINE GLUCOSE (UA) 3+ mg/dL (Normal); URINE LEUKOCYTE ESTERASE TRACE Leu/uL (Negative); URINE PROTEIN NEGATIVE (NEGATIVE); URINE UROBILINOGEN NORMAL mg/dL (0.2-1.0)
[2018-07-19 10:29] LABS: ALB/GLOB RATIO 1.6 (1.0-2.1); ALBUMIN 4.3 g/dL (3.5-5.0); ALT/SGPT 7 U/L (9-52); AST/SGOT 26 U/L (14-36); BLOOD UREA NITROGEN 18 mg/dL (7-17); CALCIUM 9.3 mg/dl (8.6-10.4); GFR NON-AFRICAN AMERICAN > 60
[2018-07-19] MEDS ORDERED: Sodium Chloride 0.9% 1,000 ML IV ONE ×3 (11:18→12:25)
[2018-07-19] MEDS ORDERED: (Novolin R) Insulin Human Regular 100 units/ml vial IVP ONE (11:18)
[2018-07-19] MEDS ORDERED: Sodium Chloride 0.9% 1,000 ML ONE (11:36)
[2018-07-19] MEDS ORDERED: (Novolin R) Insulin Human Regular 100 units/ml vial ONE (11:36)
--- NOTE | 2018-07-19 12:36 | C.PDOC ---
History Of Present Illness 32 year old female presents to ED with complaint of bilateral leg and foot pain. Patient has PMHx of DM I and diabetic neuropathy. She states that she typically uses insulin, and her last insulin use was yesterday. Patient admits to nausea and several episodes of diarrhea. She denies vomiting, fever, chest pain, SOB, dysuria/hematuria. Time Seen by Provider: 07/19/18 08:59 Chief Complaint (Nursing): Lower Extremity Problem/Injury History Per: Patient History/Exam Limitations: no limitations Current Symptoms Are (Timing): Still Present Severity: Moderate Past Medical History Reviewed: Historical Data, Nursing Documentation, Vital Signs Vital Signs: Last Vital Signs Temp 98.5 F 07/19/18 08:50 Pulse 112 H 07/19/18 08:50 Resp 18 07/19/18 08:50 BP 121/85 07/19/18 08:50 Pulse Ox 99 07/19/18 08:50 - Medical History PMH: Anxiety, Diabetes Surgical History: No Surg Hx - [facility] Procedures (11/04/17) EXCISION OF STOMACH, ENDO, DIAGN (11/04/17) Family History: States: No Known Family Hx - Social History Hx Alcohol Use: No Hx Substance Use: No - Immunization History Hx Tetanus Toxoid Vaccination: Yes Hx Influenza Vaccination: Yes Hx Pneumococcal Vaccination: Yes Review Of Systems Constitutional: Negative for: Fever, Chills, Weakness Cardiovascular: Negative for: Chest Pain, Palpitations Respiratory: Negative for: Shortness of Breath Gastrointestinal: Positive for: Nausea, Diarrhea. Negative for: Vomiting, Abdominal Pain Musculoskeletal: Positive for: Leg Pain, Foot Pain (bilateral) Skin: Negative for: Rash Neurological: Negative for: Weakness, Numbness, Headache, Dizziness Physical Exam - Physical Exam Appears: Well, Non-toxic, Other (uncomfortable appearing ) Skin: Normal Color, Warm, Dry, No Rash Head: Normacephalic Eye(s): bilateral: Normal Inspection Oral Mucosa: Moist Neck: Supple Cardiovascular: Rhythm Regular, Other (tachycardic) Respiratory: Normal Breath Sounds, No Accessory Muscle Use, No Rales, No Rhonchi, No Wheezing Gastrointestinal/Abdominal: Normal Exam, Bowel Sounds, Soft, No Tenderness Extremity: Normal ROM, No Pedal Edema, No Calf Tenderness, Capillary Refill (<2 seconds all digits ) Pulses: Left Dorsalis Pedis: Normal, Right Dorsalis Pedis: Normal Neurological/Psych: Oriented x3, Normal Motor, No Normal Sensation (decreased sensation B/L feet) ED Course And Treatment - Laboratory Results Result Diagrams: 07/19/18 09:46 07/19/18 09:46 Lab Results: pO2 47 mm/Hg (30-55) 07/19/18 09:57 VBG pH 7.33 (7.32-7.43) 07/19/18 09:57 VBG pCO2 46 mmHg (40-60) 07/19/18 09:57 VBG HCO3 23.0 mmol/L 07/19/18 09:57 VBG Total CO2 25.7 mmol/L (22-28) 07/19/18 09:57 VBG O2 Sat (Calc) 87.5 % (40-65) H 07/19/18 09:57 VBG Base Excess -1.9 mmol/L (0.0-2.0) L 07/19/18 09:57 VBG Potassium 4.1 mmol/L (3.6-5.2) 07/19/18 09:57 Sodium 139.0 mmol/l (132-148) 07/19/18 09:57 Chloride 100.0 mmol/L (98-107) 07/19/18 09:57 Glucose 464 mg/dl (65-105) H* D 07/19/18 09:57 Lactate 4.4 mmol/L (0.7-2.1) H* 07/19/18 09:57 Total Bilirubin 0.3 mg/dL (0.2-1.3) 07/19/18 09:46 AST 26 U/L (14-36) 07/19/18 09:46 ALT 7 U/L (9-52) L D 07/19/18 09:46 Alkaline Phosphatase 95 U/L (38-126) 07/19/18 09:46 Total Protein 7.1 g/dL (6.3-8.3) 07/19/18 09:46 Albumin 4.3 g/dL (3.5-5.0) 07/19/18 09:46 Globulin 2.7 gm/dL (2.2-3.9) 07/19/18 09:46 Albumin/Globulin Ratio 1.6 (1.0-2.1) 07/19/18 09:46 Urine Color Straw (YELLOW) 07/19/18 09:46 Urine Clarity Clear (Clear) 07/19/18 09:46 Urine pH 5.0 (5.0-8.0) 07/19/18 09:46 Ur Specific [place] 1.025 (1.003-1.030) 07/19/18 09:46 Urine Protein Negative mg/dL (NEGATIVE) 07/19/18 09:46 Urine Glucose (UA) 3+ mg/dL (Normal) H 07/19/18 09:46 Urine Ketones Negative mg/dL (NEGATIVE) 07/19/18 09:46 Urine Blood Negative (NEGATIVE) 07/19/18 09:46 Urine Nitrate Negative (NEGATIVE) 07/19/18 09:46 Urine Bilirubin Negative (NEGATIVE) 07/19/18 09:46 Urine Urobilinogen Normal mg/dL (0.2-1.0) 07/19/18 09:46 Ur Leukocyte Esterase Trace [place]/uL (Negative) 07/19/18 09:46 Urine WBC (Auto) 2 /hpf (0-5) 07/19/18 09:46 Urine RBC (Auto) 1 /hpf (0-3) 07/19/18 09:46 Ur Squamous Epith Cells 1 /hpf (0-5) 07/19/18 09:46 Urine HCG, Qual Negative (NEGATIVE) 07/19/18 09:46 Urine HCG, Qual Negative (NEGATIVE) 07/19/18 09:46 O2 Sat by Pulse Oximetry: 99 (RA) Pulse Ox Interpretation: Normal Progress Note: Blood work, UA, Upreg, venous doppler ordered and reviewed. Patient given IV NS bolus x 3, IV insulin, IV toradol. PO Gabapentin and PO tylenol also given. Reevaluation Time: 15:45 Reassessment Condition: Improved (Patient reassessed, is resting comfortably and states she feels better. Blood work neg for anion gap or acidosis. Venous doppler neg for DVT. Patient instructed to follow up with PMD/clinic in 1-2 days, and understands she should return to ED if symptoms worsen.) Critical Care Time - Critical Care Note Total Time (in mins): 45 Documented critical care: time excludes all time spent performing seperately billable procedures. Disposition Counseled Patient/Family Regarding: Studies Performed, Diagnosis, Need For Followup, Rx Given - Disposition Referrals: [facility] [Outside] Disposition: HOME/ ROUTINE Disposition Time: 15:45 Condition: STABLE Additional Instructions: FOLLOW UP IN THE MEDICAL CLINIC IN 1-2 DAYS USE MEDICATIONS DAILY TAKE YOUR INSULIN DIRECTED RETURN TO ER IF SYMPTOMS WORSEN Instructions: Hyperglycemia, Adult (DC) Forms: [employer] (Vietnamese) Print Language: SPANISH - Clinical Impression Clinical Impression: Diabetic neuropathy, Hyperglycemia - Scribe Statement The provider has reviewed the documentation as recorded by the Scribe (Rosaura Landry) All medical record entries made by the Scribe were at my direction and personally dictated by me. I have reviewed the chart and agree that the record accurately reflects my personal performance of the history, physical exam, medical decision making, and the department course for this patient. I have also personally directed, reviewed, and agree with the discharge instructions and disposition.
[2018-07-19 13:37] LABS: VENOUS BLOOD GAS BASE EXCESS 0.8 mmol/L (0.0-2.0); VENOUS BLOOD GAS PCO2 49 mmHg (40-60); VENOUS BLOOD GAS PO2 49 mm/Hg (30-55); VENOUS BLOOD PH 7.35 (7.32-7.43)
[2018-07-19 16:12] VITALS: BP 124/87; PULSE 100; TEMP 99
--- NOTE | 2018-07-22 13:59 | VASCLAB ---
Date of service: 07/19/2018 PROCEDURE: Lower Extremity Venous Duplex Exam. HISTORY: BLE LEG PAIN R/O DVT PRIORS: None. TECHNIQUE: Bilateral common femoral, femoral, popliteal and posterior tibial, peroneal and great saphenous veins were evaluated. Flow was assessed with color Doppler, compressibility, assessment of phasic flow and augmentation response. Report prepared by Lexii Rayo, RDTEJA, RVS FINDINGS: RIGHT: 1. Common Femoral Vein: 1.1. Compressibility - Fully compressible: Thrombus - None : Flow - Phasic: Augmentation -Normal: Reflux - None. 2. Femoral Vein: 2.1. Compressibility - Fully compressible: Thrombus - None : Flow - Phasic: Augmentation -Normal: Reflux - None. 3. Popliteal Vein: 3.1. Compressibility - Fully compressible: Thrombus - None : Flow - Phasic: Augmentation -Normal: Reflux - None. 4. Posterior Tibial Vein: 4.1. Compressibility - Fully compressible: Thrombus - None: Flow - Phasic: Augmentation -Normal: Reflux - None. 5. Peroneal Vein: 5.1. Compressibility - Fully compressible: Thrombus - None: Flow - Phasic: Augmentation -Normal: Reflux - None. 6. Great Saphenous Vein: 6.1. Compressibility - Fully compressible: Thrombus - None: Flow - Phasic: Augmentation - Normal: Reflux - None. LEFT: 1. Common Femoral Vein: 1.1. Compressibility - Fully compressible: Thrombus - None: Flow - Phasic: Augmentation -Normal: Reflux - None. 2. Femoral Vein: 2.1. Compressibility - Fully compressible: Thrombus - None: Flow - Phasic: Augmentation -Normal: Reflux - None. 3. Popliteal Vein: 3.1. Compressibility - Fully compressible: Thrombus - None : Flow - Phasic: Augmentation -Normal: Reflux - None. 4. Posterior Tibial Vein: 4.1. Compressibility - Fully compressible: Thrombus - None: Flow - Phasic: Augmentation -Normal: Reflux - None. 5. Peroneal Vein: 5.1. Compressibility - Fully compressible: Thrombus - None: Flow - Phasic: Augmentation -Normal: Reflux - None. 6. Great Saphenous Vein: 6.1. Compressibility - Fully compressible: Thrombus - None: Flow - Phasic: Augmentation - Normal: Reflux - None. OTHER FINDINGS: Right: None significant. Left: None significant. IMPRESSION: Right: No evidence of deep or superficial vein thrombosis of the right lower extremity. Normal valve function noted of the right side. Left: No evidence of deep or superficial vein thrombosis of the left lower extremity. Normal valve function noted of the left side.
[2018-08-01 09:30] VITALS: O2SAT 99
== END 2018-07-19 16:14 | disposition home or self-care (01) ==
LOC: C.ER 08:40
DX: E10.65 Type 1 diabetes mellitus with hyperglycemia (principal); E10.40 Type 1 diabetes mellitus with diabetic neuropathy, unspecified; Z79.4 Long term (current) use of insulin
CPT/HCPCS: 80053; 81001; 82009; 82803; 82948; 83930; 84703; 85025; 93970; 96361; 96374; 96375; 99285; J1885; J7030

== ENCOUNTER 2018-08-06 22:02 | Emergency (ER) | payer SELFPAY ==
[2018-08-06 22:02] VITALS: BMI 20.5
[2018-08-06 22:33] VITALS: O2SAT 100
[2018-08-06] MEDS ORDERED: Sodium Chloride 0.9% 2,000 ML IV ONE (22:35)
--- NOTE | 2018-08-06 22:40 | C.PDOC ---
History Of Present Illness Patient presents to the ED c/o abdominal pain associated with nausea. Patient is an insulin dependent diabetic, has not tested her blood sugar. Patient reports she did cocaine over the weekend. Patient denies fever, chills, diarrhea, CP, SOB, palpitations, weakness, numbness. Time Seen by Provider: 08/06/18 22:35 Chief Complaint (Nursing): High Blood Sugar History Per: Patient History/Exam Limitations: no limitations Onset/Duration Of Symptoms: Days Current Symptoms Are (Timing): Still Present Current Diabetic Medications: Insulin Causative (Exacerbating) Factor(s): Other (recent drugs ) Associated Infectious Symptoms: Nausea Recent travel outside of the [place]: No Additional History Per: Patient Past Medical History Reviewed: Historical Data, Nursing Documentation, Vital Signs Vital Signs: Last Vital Signs Temp 99 F 08/06/18 22:29 Pulse 119 H 08/06/18 22:29 Resp 18 08/06/18 22:29 BP 130/96 H 08/06/18 22:29 Pulse Ox 100 08/06/18 22:29 Primary Care Physician: Non [facility] Provider - Medical History PMH: Anxiety, Diabetes, HTN Denies: HIV, Chronic Kidney Disease Surgical History: No Surg Hx - [facility] Procedures (11/04/17) EXCISION OF STOMACH, ENDO, DIAGN (11/04/17) Family History: States: Unknown Family Hx - Social History Hx Alcohol Use: No Hx Substance Use: No (patient denies) - Immunization History Hx Tetanus Toxoid Vaccination: Yes Hx Influenza Vaccination: Yes Hx Pneumococcal Vaccination: Yes Review Of Systems Constitutional: Negative for: Fever, Chills Cardiovascular: Negative for: Chest Pain, Palpitations Respiratory: Negative for: Shortness of Breath Gastrointestinal: Positive for: Nausea, Abdominal Pain. Negative for: Vomiting, Diarrhea Skin: Negative for: Rash Neurological: Negative for: Weakness, Numbness, Headache, Dizziness Physical Exam - Physical Exam Appears: Non-toxic Skin: Warm, Dry Head: Normacephalic Eye(s): bilateral: Normal Inspection Oral Mucosa: Moist Teeth: No Normal Dentition (Poor dentition) Neck: Supple Chest: Symmetrical Cardiovascular: Rhythm Regular Respiratory: No Rales, No Rhonchi, No Wheezing Gastrointestinal/Abdominal: Soft, Tenderness (RUQ), No Guarding, No Rebound Extremity: Bilateral: Atraumatic, Normal Color And Temperature, Normal ROM Neurological/Psych: Oriented x3, Normal Speech, Normal Cognition Gait: Steady ED Course And Treatment - Laboratory Results Result Diagrams: 08/06/18 23:40 08/06/18 23:41 O2 Sat by Pulse Oximetry: 100 (ON RA) Pulse Ox Interpretation: Normal Progress Note: Plan: - VBG. - Labs. - IV fluids. - UA. placed r humeral he ad IO without any difficulty.good flow Reevaluation Time: 06:40 Reassessment Condition: Improved Disposition Counseled Patient/Family Regarding: Studies Performed, Diagnosis - Disposition Disposition Time: 22:40 Condition: FAIR Forms: [employer] (Wolof) - Clinical Impression Clinical Impression: Hyperglycemia, Abdominal pain - Scribe Statement The provider has reviewed the documentation as recorded by the Scribe Best Casanova All medical record entries made by the Scribe were at my direction and personally dictated by me. I have reviewed the chart and agree that the record accurately reflects my personal performance of the history, physical exam, medical decision making, and the department course for this patient. I have also personally directed, reviewed, and agree with the discharge instructions and disposition. Physician Patient Turnover Patient Signed Over To: Raina Leary Handoff Comments: pending repeat lactic and dispo
[2018-08-06] MEDS ORDERED: Sodium Chloride 0.9% 1,000 ML ONE (22:54)
[2018-08-06 23:43] LABS: BASO % 0.4 % (0.0-2.0); EOS # 0.1 K/uL (0.0-0.7); EOS % 1.2 % (0.0-4.0); HEMOGLOBIN 11.8 g/dL (11.0-16.0); LYMPH % 38.6 % (20.0-40.0); MEAN CELL VOLUME 85.2 fL (81.0-99.0); MEAN CORPUSCULAR HEMOGLOBIN 28.8 pg (27.0-31.0); MEAN CORPUSCULAR HGB CONC 33.8 g/dL (33.0-37.0); MEAN PLATELET VOLUME 8.8 fL (7.2-11.7); MONO # 0.4 K/uL (0.0-0.8); MONO % 8.4 % (0.0-10.0); NEUT # 2.6 K/uL (1.8-7.0); NEUT % 51.4 % (50.0-75.0); NRBC % 0.1 % (0.0-2.0); RBC 4.11 Mil/uL (3.80-5.20); RED CELL DISTRIBUTION WIDTH 13.6 % (11.5-14.5); WHITE BLOOD COUNT 5.1 K/uL (4.8-10.8)
[2018-08-06] MEDS ORDERED: Pantoprazole 40 mg EC Tab PO ONE (23:48)
[2018-08-06] MEDS ORDERED: Pantoprazole 40 mg EC Tab PO STA (23:53)
[2018-08-06 23:59] LABS: ALB/GLOB RATIO 1.3 (1.0-2.1); ALT/SGPT 12 U/L (9-52); AST/SGOT 26 U/L (14-36); BLOOD UREA NITROGEN 15 mg/dL (7-17); CALCIUM 9.2 mg/dl (8.6-10.4); GFR NON-AFRICAN AMERICAN > 60
[2018-08-07 00:11] LABS: VENOUS BLOOD GAS BASE EXCESS -0.8 mmol/L (0.0-2.0); VENOUS BLOOD GAS PCO2 27 mmHg (40-60); VENOUS BLOOD GAS PO2 228 mm/Hg (30-55)
[2018-08-07] MEDS ORDERED: Lidocaine 2% MPF (5 ml) Inj ONE (01:45)
[2018-08-07] MEDS ORDERED: Lidocaine 2% Inj (20ml) INFIL ONE (02:40)
[2018-08-07] MEDS ORDERED: Lidocaine 2% Inj (20ml) IV ONE (02:49)
[2018-08-07] MEDS ORDERED: Sodium Chloride 0.9% 1,000 ML IV ONE (03:59)
[2018-08-07 05:45] LABS: SQUAMOUS EPITHIAL 2 /hpf (0-5); URINE BACTERIA RARE (<OCC); URINE BILIRUBIN NEGATIVE (NEGATIVE); URINE BLOOD NEGATIVE (NEGATIVE); URINE CLARITY Clear (Clear); URINE COLOR Straw (YELLOW); URINE GLUCOSE (UA) 3+ mg/dL (Normal); URINE LEUKOCYTE ESTERASE NEG Leu/uL (Negative); URINE PROTEIN NEGATIVE (NEGATIVE); URINE UROBILINOGEN NORMAL mg/dL (0.2-1.0)
[2018-08-07 05:46] LABS: HCG,QUALITATIVE URINE NEGATIVE (NEGATIVE)
[2018-08-07 06:45] LABS: BARBITURATES, UR NEGATIVE (NEGATIVE); BENZODIAZEPINES, UR NEGATIVE (NEGATIVE); PHENCYCLIDINE, UR NEGATIVE (NEGATIVE)
[2018-08-07 07:10] VITALS: RESP 20
[2018-08-07 07:15] LABS: OPIATES, UR POSITIVE (NEGATIVE)
[2018-08-07 07:20] LABS: VENOUS BLOOD GAS BASE EXCESS -0.2 mmol/L (0.0-2.0); VENOUS BLOOD GAS PCO2 41 mmHg (40-60); VENOUS BLOOD GAS PO2 50 mm/Hg (30-55); VENOUS BLOOD PH 7.39 (7.32-7.43)
[2018-08-07 08:02] VITALS: BP 124/82; PULSE 88; TEMP 98.8
== END 2018-08-07 08:10 | disposition home or self-care (01) ==
LOC: C.ER 22:02 → SUPCPDRO 22:02 → C.ER 08-07 08:10
DX: R10.11 Right upper quadrant pain (principal); E11.65 Type 2 diabetes mellitus with hyperglycemia; Z79.4 Long term (current) use of insulin
CPT/HCPCS: 36415; 80053; 81001; 82009; 82803; 82948; 83605; 84703; 85025; 96361; 96374; 96375; 99285; G0480; J1885; J2270; J7030